=== PATIENT | female | born 1965 | race Caucasian/White ===

== ENCOUNTER → 2020-03-17 15:27 | Outpatient (CLI) | payer MEDICAID, SELFPAY ==
[2020-03-17 16:22] LABS: Basophils # 0.1 K/mm3 (0-0.2); Basophils % 0.4 % (0.1-2.0); Eosinophils % 0.4 % (0.1-12.0); Hematocrit 45.2 % (37.0-47.0); Hemoglobin 14.5 g/dL (12.2-16.2); Lymphocytes # 1.1 K/mm3 (0.7-4.5); Lymphocytes % 10.9 % (10-50); Mean Corpuscular Hemoglobin 29.2 pg (27.0-31.2); Mean Corpuscular Volume 91.5 fl (81-99); Mean Platelet Volume 8.3 fl (7.4-10.4); Monocytes # 0.3 K/mm3 (0.1-1.0); Neutrophils # 8.8 K/mm3 (1.8-7.8); Neutrophils % 85.2 % (37.0-80.0); Platelet Count 416 K/mm3 (142-424); Red Blood Count 4.95 M/mm3 (4.20-5.40); Red Cell Distribution Width 13.6 % (11.5-17.5); White Blood Count 10.3 K/mm3 (4.8-10.8)
[2020-03-17 16:28] LABS: MANUAL DIFFERENTIAL MANUAL DIFFERENTIAL (MANUAL DIFF)
[2020-03-17 16:32] LABS: Alanine Aminotransferase 42 U/L (12-78); Albumin Level 4.4 g/dl (3.5-5.0); Albumin/Globulin Ratio 1.4 (1.1-1.8); Alkaline Phosphatase 143 U/L (38-126); Anion Gap 12.7 mEq/L (5-15); Aspartate Amino Transferase 28 U/L (14-36); Bilirubin,Total 0.5 mg/dl (0.2-1.3); Blood Urea Nitrogen 26 mg/dl (7-17); Calcium 10.1 mg/dl (8.4-10.2); Carbon Dioxide 30 mmol/L (22.0-30.0); Chloride 100 mmol/L (98-107); Estimated Glomerular Filt Rate 58 ml/min (>60); GFR (African American) 70 ML/MIN (>60); Globulin 3.2 g/dL (1.3-3.2); Glucose 106 mg/dl (74-100); Potassium 4.7 mmoL/L (3.5-5.1); Sodium 138 mmol/L (136-145); Total Protein,Serum 7.6 g/dl (6.3-8.2)
[2020-03-17 17:30] LABS: Lymphocytes % 10 % (10-50); Monocytes % 4 % (2-9); Neutrophils % 86 % (42-76); Platelet Estimate Normal; RBC Morphology Normal; Total Cells Counted 100
== END ==
PROVIDERS: Visit Provider Family Medicine
DX: Z79.899 Other long term (current) drug therapy (principal); G43.909 Migraine, unspecified, not intractable, without status migrainosus; M32.9 Systemic lupus erythematosus, unspecified
CPT/HCPCS: 80053; 85007; 85025

== ENCOUNTER → 2021-07-27 08:18 | Outpatient (CLI) | payer MEDICAID, SELFPAY | PROVIDERS: Visit Provider Family Medicine | DX: R35.0 Frequency of micturition (principal) | CPT/HCPCS: 87086 ==

== ENCOUNTER → 2021-11-30 11:24 | Outpatient (CLI) | payer MEDICAID, SELFPAY ==
--- NOTE | 2021-11-30 11:31 | XR_ITS ---
FINAL REPORT CLINICAL HISTORY: erosive oa FINDINGS: RIGHT HIP Two views of the right hip with an AP pelvis demonstrate no acute fracture or dislocation. There are severe degenerative changes of the right hip. There are subchondral cysts in the superior femoral head. There is mild superolateral subluxation of the right femur. No soft tissue abnormality is seen. IMPRESSION: Severe degenerative changes of the right hip. Subchondral cysts in the superior femoral head. Reviewed, Interpreted and Dictated by Kyle Potts III, MD Transcribed by Lori Jennings Authenticated and [facility]
== END ==
PROVIDERS: PCP Family Medicine; Visit Provider Family Medicine
DX: M25.551 Pain in right hip (principal)
CPT/HCPCS: 73502

== ENCOUNTER → 2022-01-24 09:48 | Outpatient (CLI) | payer MEDICAID, SELFPAY | PROVIDERS: PCP Family Medicine; Visit Provider Orthopaedic Surgery | DX: Z01.812 Encounter for preprocedural laboratory examination (principal); Z20.822 Contact with and (suspected) exposure to COVID-19 | CPT/HCPCS: 36415; C9803; U0003; U0005 ==

== ENCOUNTER → 2023-01-16 12:00 | Outpatient (CLI) | payer OTHER, SELFPAY ==
[2023-01-16 18:21] LABS: Coronavirus 19, PCR Not Detected (NotDetected); Influenza A, PCR Not Detected (NotDetected); Influenza B, PCR Not Detected (NotDetected)
== END ==
PROVIDERS: PCP Nurse Practitioner; Visit Provider Nurse Practitioner
DX: J06.9 Acute upper respiratory infection, unspecified (principal)
CPT/HCPCS: 87636

== ENCOUNTER 2024-08-10 09:11 | Outpatient (CLI) | payer OTHER, SELFPAY ==
--- NOTE | 2024-08-10 10:00 | MM_ITS ---
PROCEDURE INFORMATION: Exam: Bilateral Screening 3D Mammography Exam date and time: 08/10/2024 9:41 AM Age: 59 years old Clinical indication: Screening. No family history of breast cancer. TECHNIQUE: Imaging protocol: Bilateral Screening tomosynthesis and 2D mammography including computer-aided detection (CAD) when performed. COMPARISON: DIG MAMMO BILAT SCREENING 11/06/2016 2:52 PM FINDINGS: MAMMOGRAPHY: Breast composition: There are scattered areas of fibroglandular density. Mass: None. Architectural distortion: None. Calcifications: No suspicious calcifications. Asymmetric density: No developing asymmetry. Skin thickening: None. Axillary adenopathy: None. IMPRESSION: No mammographic evidence of malignancy. Annual screening is recommended unless otherwise clinically indicated. ASSESSMENT: BI-RADS Category 1: Negative.
== END 2024-08-10 23:59 | disposition home or self-care (01) ==
LOC: RAD 09:11
PROVIDERS: PCP Family Medicine; Visit Provider Family Medicine
DX: Z12.31 Encounter for screening mammogram for malignant neoplasm of breast (principal)
CPT/HCPCS: 77063; 77067

== ENCOUNTER 2024-12-09 00:29 | Observation (INO) | payer OTHER, SELFPAY ==
[2024-12-09] VITALS (7 sets, daily range): BP systolic 108–140; BP diastolic 54–69; PULSE 60–82; RESP 13–16; TEMP 36.6–36.8; O2SAT 95–100; BMI 26.5; BMI 26.8
--- NOTE | 2024-12-09 00:31 | CT_ITS ---
PROCEDURE INFORMATION: Exam: CT Abdomen And Pelvis With Contrast Exam date and time: 12/09/2024 1:04 AM Age: 59 years old Clinical indication: Abdominal pain; Epigastric; Additional info: Epigastric pain TECHNIQUE: Imaging protocol: Computed tomography of the abdomen and pelvis with contrast. Total images: 300 Radiation optimization: All CT scans at this facility use at least one of these dose optimization techniques: automated exposure control; mA and/or kV adjustment per patient size (includes targeted exams where dose is matched to clinical indication); or iterative reconstruction. Contrast material: ISOVUE; Contrast volume: 75 ml; Contrast route: IV; COMPARISON: CR XR HIP RT 2-3V W/PELVIS 11/30/2021 11:34 AM FINDINGS: Lungs: Lung bases are clear. Heart: Trace pericardial fluid versus thickening. Normal heart size. Diaphragm: Moderate hiatal hernia. Liver: Normal. No mass. Gallbladder and biliary ducts: Distended gallbladder with mild wall thickening and subtle pericholecystic edema. Cholelithiasis. No biliary ductal dilatation. Pancreas: Normal. No ductal dilation. Spleen: Normal. No splenomegaly. Adrenal glands: Normal. No mass. Kidneys and ureters: No hydronephrosis, nephrolithiasis, or renal mass. No ureteral stones. Stomach and bowel: Unremarkable stomach and duodenum. No ileus or bowel obstruction. Unremarkable small bowel. Mild fluid distended terminal ileum. Moderate sigmoid diverticulosis without diverticulitis. Unremarkable rectum. Appendix: Nonvisualized appendix. No secondary signs for appendicitis. Intraperitoneal space: Unremarkable. No free air. No significant fluid collection. Vasculature: Nonaneurysmal abdominal aorta with mild scattered calcifications. Major abdominal vessels enhance appropriately. Lymph nodes: Unremarkable. No enlarged lymph nodes. Urinary bladder: Collapsed bladder. Reproductive: Physiologic uterus and ovaries. Tubal ligation clips. No adnexal mass. Bones/joints: right total hip arthroplasty. No acute osseous abnormality or concerning bone lesions. Soft tissues: tiny fat containing umbilical hernia. IMPRESSION: 1. Concerning findings for acute calculus cholecystitis. Recommend follow-up gallbladder ultrasound and/or hepatobiliary scintigraphy. 2. Moderate sigmoid diverticulosis without acute diverticulitis. 3. Moderate hiatal hernia.
--- NOTE | 2024-12-09 00:31 | ECG_ITS ---
APPROVED REPORT Exam: Resting ECG HR:72 bpm ECG Measurements Heart Rate 72 AXES NC 164 P 67 QRSd 66 QRS 76 QT 389 T 80 QTc 412 Conclusion SINUS RHYTHM SEPTAL MYOCARDIAL INFARCTION , PROBABLY OLD [40+ ms Q WAVE IN V1/V2] ABNORMAL ECG UNCONFIRMED REPORT Electronically signed by : PROSPER CARRINGTON, 12/10/2024 06:56:17
[2024-12-09 00:40] LABS: Hematocrit 38.7 % (37.0-47.0); Hemoglobin 12.9 g/dL (12.2-16.2); Immature Granulocytes % 0.2 %; Mean Corpuscular HGB Conc 33.3 g/dL (31.8-35.4); Mean Corpuscular Hemoglobin 27.8 pg (27.0-31.2); Mean Corpuscular Volume 83.4 fl (81-99); Nucleated Red Blood Cells % 0 %; Platelet Count 326 K/mm3 (142-424); Red Blood Count 4.64 M/mm3 (4.20-5.40); Red Cell Distribution Width-SD 43.3 fL; White Blood Count 8.6 K/mm3 (4.8-10.8)
[2024-12-09] MEDS: ACETAMINOPHEN 500MG TAB 1000 MG PO (00:40)
[2024-12-09] MEDS: KETOROLAC 30MG/ML VIAL 15 MG IV (00:40)
[2024-12-09] MEDS: MORPHINE 4MG/ML SYRINGE 4 MG IV (00:40)
[2024-12-09] MEDS: LACTATED RINGERS 1000ML 1,000 ML 999 ML IV (00:41)
[2024-12-09] MEDS: ONDANSETRON 4MG/2ML VIAL 4 MG IV (00:41)
[2024-12-09 00:51] LABS: Alanine Aminotransferase 16 U/L (12-78); Albumin Level 4.7 g/dl (3.5-5.0); Albumin/Globulin Ratio 1.3 (1.1-1.8); Alkaline Phosphatase 96 U/L (38-126); Anion Gap 19.1 mEq/L (5-15); Aspartate Amino Transferase 24 U/L (14-36); Bilirubin,Total 0.6 mg/dl (0.2-1.3); Blood Urea Nitrogen 25 mg/dl (7-17); Calcium 10.1 mg/dl (8.4-10.2); Carbon Dioxide 19 mmol/L (22.0-30.0); Chloride 102 mmol/L (98-107); Creatinine Clearance Estimated 49 mL/min (50-200); Creatinine,Serum 1.30 mg/dl (0.52-1.04); Estimated Glomerular Filt Rate 42 ml/min (>60); GFR (African American) 51 ML/MIN (>60); Globulin 3.7 g/dL (1.3-3.2); Glucose 103 mg/dl (74-100); Lipase 252 U/L (23-300); Magnesium 1.6 mg/dl (1.6-2.3); Potassium 3.1 mmoL/L (3.5-5.1); Sodium 137 mmol/L (136-145); Total Protein,Serum 8.4 g/dl (6.3-8.2)
--- NOTE | 2024-12-09 00:52 | ED_ITS ---
Discharge Plan Disposition Patient Disposition: Admitted Prescriptions Prescriptions: No Action omeprazole 20 mg capsule,delayed release(DR/EC) 20 mg PO BID Qty: 180 3RF albuterol sulfate 90 mcg/actuation HFA aerosol inhaler 2 puff inhalation Q4-6H PRN (Reason: shortness of breath or wheezing) Qty: 8.5 10RF sertraline [Zoloft] 100 mg tablet 100 mg PO DAILY Qty: 90 10RF Ubrelvy 100 mg tablet 100 mg PO ONCE Qty: 10 5RF Rx Instructions: one at onset of headache repeat in 6 hours as needed bupropion HCl [Wellbutrin SR] 150 mg tablet sustained-release 12 hr 150 mg PO DAILY Qty: 90 1RF lisinopril-hydrochlorothiazide 20-12.5 mg tablet See Rx Instructions .ROUTE .COMPLEX Qty: 90 1RF Dose Instruction: TAKE 1 TABLET BY MOUTH DAILY. Rx Instructions: TAKE 1 TABLET BY MOUTH DAILY. lorazepam 2 mg tablet 2 mg PO HS PRN (Reason: sleep) Qty: 30 5RF Wegovy 2.4 mg/0.75 mL pen injector 2.4 mg SQ WEEKLY Qty: 3 12RF pantoprazole [Protonix] 40 mg tablet,delayed release (DR/EC) 40 mg PO BID Qty: 180 3RF Clinical Impressions Clinical Impression: Acute calculous cholecystitis Instructions Patient Instructions: DI for Acute Abdominal Pain Print Language Print Language: Belgian Discharge ED Provider: Chuy Correa General Adult HPI General Chief complaint: Abdominal Pain Stated complaint: ABD PAIN Time Seen by Provider: 12/09/24 00:35 Mode of Arrival: Family Vehicle Source of Information: Patient Description of Symptoms (Recalled from ER Triage Doc. by RN): Abd pain Pt presnets to the ED with c/o epigastric pain accompanied by nausea and vomiting X 2 days. History of Present Illness HPI narrative: 59-year-old female with history of lupus, hypertension presents for epigastric abdominal pain for the last couple of days. She reports it is severe, radiating to the back, associated with nausea and vomiting. She reports she has been unable to keep anything significant down for the last couple of days. She denies any shortness of breath. When asked to localize her pain, she points to her epigastric region, though she describes it as chest pain. She denies any significant cardiac history. Still has her gallbladder. She reports that she was put on Wegovy. Related Data Previous Rx's ?Medication ?Instructions ?Recorded albuterol sulfate 90 mcg/actuation 2 puff inhalation Q 4-6H PRN 02/21/24 aerosol inhaler shortness of breath or wheez ing #8.5 grams sertraline 100 mg tablet (Zoloft) 100 mg PO DAILY #90 tabs 02/24/24 ubrogepant 100 mg tablet (Ubrelvy) 100 mg PO ONCE #10 tabs 07/14/24 bupropion HCl 150 mg tablet,12 hr 150 mg PO DAILY #90 ea 09/10/24 sustained-release (Wellbutrin SR) lisinopril 20 See Rx Instructions .Route 0 09/10/24 mg-hydrochlorothiazide 12.5 mg .COMPLEX #90 tabs tablet lorazepam 2 mg tablet 2 mg PO HS PRN sleep #30 tab s 10/21/24 omeprazole 20 mg capsule,delayed 20 mg PO BID #180 cap s 11/23/24 release Wegovy 2.4 mg/0.75 mL subcutaneous 2.4 mg (0.75 mL) SQ WEEKLY #3 mL 11/24/24 pen injector (semaglutide (weight loss)) pantoprazole 40 mg tablet,delayed 40 mg PO BID #180 ta bs 11/26/24 release (Protonix) Allergies Allergy/AdvReac Type Severity Reaction Status Date / Time codeine Allergy Severe Hives Verified 12/09/24 00:42 Penicillins Allergy Unknown Other Verified 12/09/24 00:42 [facility] Disclaimer: The information contained in this section may have been updated after the patient was seen, as this information can be updated by other users. Medical History Acute dysfunction of eustachian tube Hx of fracture of right hip Anemia Depression Hiatal hernia Anxiety Arthritis of right hip Hypertension Lupus Surgical History History of total left knee replacement Hx of carpal tunnel repair Hx of section Family History Other Heart attack Social History Smoking Status: Never smoker alcohol intake: never substance use type: denies use current occupational status: unemployed and disabled Travel in the last 8 weeks?: None housing: house Do you have any abdominal pain?: Yes Other Medical History Have you received the Pneumonia Vaccine: Yes ROS Obtained: Yes All systems reviewed & no additional complaints except as documented Physical Exam General General appearance: alert and in no apparent distress Head Head exam: atraumatic and normocephalic Eye Eye exam: Present normal appearance, PERRL and EOMI ENT ENT exam: Present normal oropharynx and normal external ear exam Neck Neck exam: Present normal inspection and full ROM Chest Chest inspection: Present normal inspection and symmetric chest wall rise; Absent tenderness Respiratory Respiratory exam: Present normal lung sounds bilaterally; Absent respiratory distress Cardiovascular Cardiovascular exam: Present regular rate and normal rhythm Abdominal Exam Abdominal exam: Present soft and tenderness (Epigastric, right upper quadrant); Absent distention or guarding Extremities Exam Extremities exam: Present normal inspection; Absent edema or joint swelling Back Exam Back exam: Present normal inspection; Absent tenderness Neurological Exam Neurological exam: Present alert and oriented X3; Absent motor sensory deficit Psychiatric Psychiatric exam: Present normal affect and normal mood Skin Skin exam: Present warm, dry and normal color Lymphatic Lymphatic Findings: no adenopathy Medical Decision Making Medical Records Medical records reviewed: Yes I reviewed the patient's medical records. Screening: Per USPSTF and CDC recommendations, given the prevalence of disease in our region, it is our hospital?s policy to screen for HIV and viral Hepatitis for all patients aged 18 and over and those with ongoing risk factors. Mario Inquiry Pt receiving controlled substance: No Mario was queried for this patient: No Vital Signs: 12/09/24 00:35 Pulse Rate [Left] 82 Respiratory Rate 14 Blood Pressure [Right Arm] 138/63 Blood Pressure Mean [Right Arm] 88 Blood Pressure Source [Right Arm] Automatic Cuff Blood Pressure Position [Right Arm] Sitting 02 Sat by Pulse Oximetry 98 Oxygen Delivery Method Room Air Lab Data Lab results reviewed: Yes I reviewed the patient's lab results. Lab Results 12/09/24 00:34: WBC 8.6, RBC 4.64, Hgb 12.9, Hct 38.7, MCV 83.4, MCH 27.8, MCHC 33.3, RDW 14.3, Plt Count 326, MPV 9.3, Neut % (Auto) 76.6, Lymph % (Auto) 15.0, Todd % (Auto) 7.5, Eos % (Auto) 0.5, Baso % (Auto) 0.2, Neut # (Auto) 6.6, Lymph # (Auto) 1.3, Todd # (Auto) 0.7, Eos # (Auto) 0.0, Baso # (Auto) 0.0, Sodium 137, Potassium 3.1 L, Chloride 102, Carbon Dioxide 19 L, Anion Gap 19.1 H, BUN 25 H, Creatinine 1.30 H, Estimated Creat Clear 49, Estimated GFR 42 L, Est GFR ( Amer) 51 L, Glucose 103 H, Calcium 10.1, Magnesium 1.6, Total Bilirubin 0.6, AST 24, ALT 16, Alkaline Phosphatase 96, Troponin I < 0.01, Total Protein 8.4 H, Albumin 4.7, Globulin 3.7 H, Albumin/Globulin Ratio 1.3, Lipase 252 12/09/24 00:34 12/09/24 00:34 Orders (Tests/Meds): ED MEDICATIONS Generic Name Dose Route Start Last Admin Trade Name Freq PRN Reason Stop Dose Admin Ceftriaxone Sodium 1 gm/ 50 mls @ 100 mls/hr 12/09/24 01:47 Sodium Chloride IV 12/09/24 02:16 ONCE ONE Metronidazole 500 mg in 100 mls @ 100 mls/hr 12/09/24 01:47 Flagyl 500mg/100ml Ivpb IV 12/09/24 02:46 ONCE ONE Sodium Chloride 1,000 mls @ 999 mls/hr 12/09/24 02:00 Sod Chlor 0.9% 1000ml Bag IV 12/09/24 03:00 .Q1H1M JONEL Sodium Chloride 10 ml 12/09/24 01:09 12/09/24 01:09 Sodium Chloride 0.9% 10ml Syr (Rad Only) IV 01/08/25 01:08 10 ml NEEDED PRN Administration Maintain IV Site Discontinued Medications Generic Name Dose Route Start Last Admin Trade Name Freq PRN Reason Stop Dose Admin Acetaminophen 1,000 mg 12/09/24 00:30 12/09/24 00:40 Acetaminophen 500mg Tab PO 12/09/24 00:31 1,000 mg ONCE ONE Administration Lactated Ringer's 1,000 mls @ 999 mls/hr 12/09/24 00:30 12/09/24 00:41 Lactated Ringer's 1000 Ml Bag IV 12/09/24 01:30 999 mls/hr .Q1H1M JONEL Administration Iopamidol 75 ml 12/09/24 01:09 12/09/24 01:09 Iopamidol-370 (76%);100ml Bottle IV 12/09/24 01:10 75 ml ONCE ONE Administration Ketorolac Tromethamine 15 mg 12/09/24 00:30 12/09/24 00:40 Ketorolac 30mg/Ml Vial IV 12/09/24 00:31 15 mg ONCE ONE Administration Morphine Sulfate 4 mg 12/09/24 00:30 12/09/24 00:40 Morphine 4mg/Ml Syringe IV 12/09/24 00:31 4 mg ONCE ONE Administration Ondansetron HCl 4 mg 12/09/24 00:30 12/09/24 00:41 Ondansetron 4mg/2ml Vial IV 12/09/24 00:31 4 mg ONCE ONE Administration Potassium Chloride 40 meq 12/09/24 01:01 12/09/24 01:09 Potassium Chloride 20meq Tab PO 12/09/24 01:02 40 meq ONCE ONE Administration ORDERS Category Date Time Status CT abdomen pelvis w con Stat Cat Scan 12/09/24 00:31 Completed POCUS Point of Care (ER Only) Stat Exams 12/09/24 01:09 Ordered CBC w/Auto Diff [Complete Blood Count Auto Diff] Stat Lab 12/09/24 00:34 Completed CMP [Comprehensive Metabolic Panel] Stat Lab 12/09/24 00:34 Completed HIV Combo Stat Lab 12/09/24 00:34 Received Hepatitis C Ab Qual. W/ RFX Stat Lab 12/09/24 00:34 Received Lipase Stat Lab 12/09/24 00:34 Completed Magnesium Stat Lab 12/09/24 00:34 Completed Troponin I Q3H Lab 12/09/24 00:34 Completed Troponin I Q3H Lab 12/09/24 03:45 Ordered Blood Culture Stat Micro 12/09/24 01:47 Ordered ECG Data Tracing #1: I reviewed this ECG and interpreted as documented below: ECG initial impression date: 12/09/24 ECG initial impression time: 00:32 ECG normal with no acute: arrhythmias, ischemia, conduction abnormalities, chamber hypertrophy Tissue Perfus/Sepsis Re-Eval Sepsis Re-Evaluation Performed: Yes Date Performed: 12/09/24 Time Performed: 01:52 HEART Score History (anamnesis): Slightly suspicious ECG: Normal Age: 45-65 years Risk factors: 1-2 risk factors Troponin: </= normal limit HEART Score: 2 Medical Decision Narrative: 59-year-old female with history of lupus, takes Wegovy, presents for 2 days of worsening epigastric abdominal pain associated with nausea and vomiting.. History was obtained via interactive discussion with patient, family, chart review. On arrival, patient is [afebrile, hemodynamically stable, satting appropriately, alert, oriented x4, GCS 15], moving all extremities spontaneously. Full physical exam performed and significant for moderate epigastric/right upper quadrant abdominal pain Differential includes but is not limited to pancreatitis, Cholecystitis, gastroenteritis, ACS. Patient was given morphine, Zofran, Tylenol, Toradol, fluid bolus for symptomatic management and correction of underlying abnormalities. Workup initiated including CBC CMP lipase CT abdomen pelvis with IV contrast. On re-evaluation, patient [remains afebrile, HD stable.] Laboratory workup independently interpreted by me and significant for lipase at upper limit of normal at 250, mildly elevated creatinine from baseline, mild hypokalemia repleted orally. Imaging independently interpreted by me and significant for CT scan does not show any evidence of pancreatic inflammation. Does show a hiatal hernia. Gallbladder is markedly distended on CT, will evaluate with ultrasound. See radiology read for full review of final results. Ibmjn-[id number] ultrasound shows significant gallbladder wall thickening, gallbladder distention and sludge. Given patient history, exam and workup, patient's presentation most likely represents acute cholecystitis. Patient was initiated on ceftriaxone and Flagyl for antibiotic coverage (penicillin allergy) interactive discussion was had with hospitalist on-call for admission for general surgery evaluation in the morning. Procedures Risk/Benefits of Procedure(s) Were Explained: Yes Critical Care Critical Care Time Critical Care Time: No
[2024-12-09] MEDS: POTASSIUM CHLORIDE 20MEQ TAB 40 MEQ PO (01:09)
[2024-12-09] MEDS: IOPAMIDOL-370 (76%);100ML BOTTLE 75 ML IV (01:09)
[2024-12-09] MEDS: SODIUM CHLORIDE 0.9% 10ML SYR (RAD ONLY) 10 ML IV (01:09)
[2024-12-09 01:24] LABS: Troponin I < 0.01 ng/ml (0.00-0.034)
--- OUTSIDE RECORDS SUMMARY | 2024-12-09 01:36 | XMS_ITS | Continuity of Care Document ---
Author Organization [facility] Address [address] [place] [address] Care Team Providers Care Licensed Clinical Social Worker Name Role Phone Buster Badillo MD Primary Care Provider [phone] Encounters Date Type Department Care Team Description 03/21/2022 3:20 PM EST - 03/21/2022 11:59 PM EST Hospital Encounter Medical Office Building Radiology [address] [place] [address] Hip pain, right Discharge Disposition: Home or Self Care 03/21/2022 Travel 03/21/2022 4:30 PM EST Office Visit Medical Office Building Surgery [facility] [address], [address] [place] [address] Quin Pino MD S/P total right hip arthroplasty (Primary Dx) 03/14/2022 Travel 02/13/2022 Travel 02/13/2022 4:30 PM EDT Office Visit Medical Office Building Surgery Spine & [facility] [address], [address] [place] [address] Quin Pino MD S/P total right hip arthroplasty (Primary Dx) 02/06/2022 Travel 01/26/2022 7:29 AM EDT - 01/27/2022 12:17 PM EDT Hospital Encounter [facility] Inpatient [address] [place] [id number] Quin Pino MD Primary osteoarthritis of one hip, right Discharge Disposition: Home or Self Care 01/26/2022 Travel 01/26/2022 10:32 AM EDT Anesthesia Event [facility] Operating Room [address] [place] [address] Yossi Gibbs MD Covington, Wade R, CRNA 01/26/2022 10:40 AM EDT - 01/26/2022 2:10 PM EDT Surgery [facility] Operating Room [address] [place] [address] Quin Pino MD ARTHROPLASTY, HIP, TOTAL [66775 (CPT )] 01/25/2022 Travel 01/19/2022 Travel 01/11/2022 Travel 01/11/2022 2:45 PM EDT Pre-Admission Testing [facility] Anesthesia [address] [place] [address] Hypertension, unspecified type (Primary Dx) 01/04/2022 Travel 12/27/2021 3:09 PM EDT - 12/27/2021 11:59 PM EDT Hospital Encounter Medical Office Building Radiology [address] [place] [address] Primary osteoarthritis of one hip, right; Hip pain, right Discharge Disposition: Home or Self Care 12/27/2021 Travel 12/27/2021 2:20 PM EDT Office Visit Medical Office Building Surgery Sp[facility] & [facility] [address], [address] [place] [address] Quin Pino MD Hip pain, right (Primary Dx); Primary osteoarthritis of one hip, right 12/22/2021 Travel Allergies Active Allergy Reactions Criticality Noted Date Comments Codeine Hives Medium 12/27/2021 Medications omeprazole (PriLOSEC) [address] capsule Take 40 mg by mouth 1 (one) time each day in the morning. Do not crush or chew. Active nortriptyline (Pamelor) 10 MG capsule Take 10 mg by mouth every night. Active hydroxychloroquine (Plaquenil) 200 MG tablet Take 200 mg by mouth 1 (one) time each day. Active lisinopril-hydroCH LOROthiazide 20-12.5 MG tablet Take 1 tablet by mouth 1 (one) time each day in the morning. Active tolterodine LA (Detrol LA) 4 MG 24 hr capsule Take 4 mg by mouth 1 (one) time each day. Do not crush, chew, or split. Active acetaminophen (Tylenol) 500 MG tablet Take 2 tablets (1,000 mg total) by mouth every 8 (eight) hours if needed for pain. 100 tablet 01/28/20 Active aspirin 81 MG chewable tablet Chew 1 tablet (81 mg total) 2 (two) times a day. 60 tablet 01/28/20 Active gabapentin (Neurontin) 100 MG capsule Take 1 capsule (100 mg total) by mouth 3 (three) times a day. 30 capsule 01/28/20 Active Additional Information Patient not taking.Reported on 02/13/2022 omeprazole (PriLOSEC) [address] capsule Take 1 capsule (20 mg total) by mouth 1 (one) time each day before breakfast. Do not crush or chew. 30 capsule 01/28/20 Active Additional Information Patient not taking.Reported on 02/13/2022 ondansetron ODT (Zofran-ODT) 4 MG disintegrating tablet Take 1 tablet (4 mg total) by mouth every 8 (eight) hours if needed for nausea or vomiting. 20 tablet 01/28/20 Active Additional Information Patient not taking.Reported on 02/13/2022 oxyCODONE (Roxicodone) 5 MG immediate release tablet Take 1 tablet (5 mg total) by mouth every 4 (four) hours if needed for severe pain. 30 tablet 01/28/20 Active Additional Information Patient not taking.Reported on 02/13/2022 traMADol (Ultram) 50 MG tablet Take 1 tablet (50 mg total) by mouth every 6 (six) hours if needed for moderate pain. 60 tablet 01/28/20 Active Additional Information Patient not taking.Reported on 02/13/2022 naproxen sodium (Aleve) 220 MG tablet Take 220 mg by mouth 2 (two) times a day with meals. Active Active Problems Problem Noted Date Diagnosed Date S/P total right hip arthroplasty 02/14/2022 Primary osteoarthritis of one hip, right 022 Overview (01/01/2022): Added automatically from request for surgery [id number] Social History Smoking Status as of 12/09/2024 Tobacco Use Types Packs/Day Years Used Date Smoking Tobacco: Never Assessed CAGE ASSESSMENT Answer Date Recorded Cage unable to access Not on file 01/26/2022 Cage max number of drinks Not on file 2021 Cage Beverages a week Not on file 01/26/2022 Have you ever felt you should CUT down on your d rinking? 0 01/26/2022 Have you been ANNOYED by people criticizing your drinking? 0 01/26/2022 Have you felt GUILTY about your drinking? 0 01/26/2022 Have you had a drink first t krystal in the morning (EYE-PRESS CLIPPER) to steady your nerves or to get rid of a hangover? 0 01/26/2022 CAGE Questionnaire Score 0 022 Sex and Gender Information Value Date Recorded Sex Assigned at Not on file Legal Sex Female 7:57 PM EDT Gender Identity Not on file Sexual Orientation Not on file Last Filed Vital Signs Vital Sign Reading Time Taken Comments Blood Pressure 111/72 03/21/2022 3:39 PM EST Pulse 92 03/21/2022 3:39 PM EST Temperature 37.1 C (98.8 F) 01/27/2022 7:09 AM EDT Respiratory Rate 16 01/26/2022 10:13 PM EDT Oxygen Saturation 98% 01/27/2022 7:09 AM EDT Inhaled Oxygen Concentration - - Weight 96.3 kg (212 lb 4.9 oz) 03/21/2022 3:39 P M EST Height 160 cm (5' 3 ) 03/21/2022 3:39 PM EST Body Mass Index 37.61 03/21/2022 3:39 PM EST Plan of Treatment Not on file Medical Devices Implanted Type Area Hide Measuring Machine Operator Device Identifier Shelf Expiration Date Model / Serial / Lot Chg Shell R3 3 Hole Acet 54mm - [id number] Implanted:Qty: 1 on 01/26/2022 by Quin Pino MD at [facility] Hip Right: Hip [employer]-[id number] 09/29/2031 [id number] / / [id number] Chg Screw Ref Spher Head 35mm - [id number] Implanted:Qty: 1 on 01/26/2022 by Quin Pino MD at [facility] Hip Right: Hip [employer]-[id number] 04/16/2031 [id number] / / [id number] Chg Screw Ref Spher Head 25mm - [id number] Implanted:Qty: 1 on 01/26/2022 by Quin Pino MD at [facility] Hip Right: Hip [employer]-[id number] 07/27/2031 [id number] / / [id number] Chg Screw Ref Spher Head 30mm - [id number] Implanted:Qty: 1 on 01/26/2022 by Quin Pino MD at [facility] Hip Right: Hip [employer]-[id number] 09/20/2031 [id number] / / [id number] Chg Liner R3 20 Deg Xlpe Acet - [id number] Implanted:Qty: 1 on 01/26/2022 by Quin Pino MD at [facility] Hip Right: Hip [employer]-[id number] 05/17/2031 [id number] / / [id number] Polarstem Cementless Tiha 2 - [id number] Implanted:Qty: 1 on 01/26/2022 by Quin Pino MD at [facility] Hip Right: Hip [employer]-[id number] 09/05/2027 [id number] / / [id number] Chg Head Oxinium Fem 03/28 36 - [id number] Implanted:Qty: 1 on 01/26/2022 by Quin Pino MD at [facility] Hip Right: Hip [employer]-[id number] 05/30/2031 [id number] / / [id number] Procedures Procedure Name Priority Date/Time Associated Diagnosis Comments XR PELVIS 1 OR 2 VIEWS Routine 03/21/2022 3:32 PM EST Hip pain, right BASIC METABOLIC PANEL, PLASMA Routine 01/27/2022 2:56 AM EDT CBC W/O DIFFERENTIAL Routine 01/27/2022 2:56 AM EDT XR HIP RIGHT 2 OR 3 VIEWS STAT 01/26/2022 2:00 PM EDT FL LESS THAN 1 HOUR (NON-REPORTABLE) Routine 01/26/2022 12:42 PM EDT SURGICAL PATHOLOGY EXAM Routine 01/26/2022 11:14 AM EDT Primary osteoarthritis of one hip, right PB ANESTHESIA PLACEHOLDER Routine 01/26/2022 10:43 AM EDT WV AN ELECTIVE ENDOTRACHEAL AIRWAY Routine 01/26/2022 10:43 AM EDT W[place] TOTAL HIP ARTHROPLASTY 01/26/2022 10:21 AM EDT Primary osteoarthritis of one hip, right Special Needs lateral, stuhlberg, jamil and nephew synergy, R3 Cup, prophylactic cables, c-arm CBC W/O DIFFERENTIAL Routine 01/11/2022 3:22 PM EDT Primary osteoarthritis of one hip, right BASIC METABOLIC PANEL, PLASMA Routine 01/11/2022 3:22 PM EDT Primary osteoarthritis of one hip, right ALBUMIN, PLASMA Routine 01/11/2022 3:22 PM EDT Primary osteoarthritis of one hip, right HEMOGLOBIN A1C Routine 01/11/2022 3:22 PM EDT Primary osteoarthritis of one hip, right NICOTINE AND COTININE METABOLITE, SERUM, QUANTITATIVE Routine 01/11/2022 3:22 PM EDT Primary osteoarthritis of one hip, right ECG ADULT Routine 01/11/2022 2:50 PM EDT Hypertension, unspecified type XR HIP RIGHT 1 VIEW Routine 12/27/2021 3:20 PM EDT Hip pain, right XR LUMBAR SPINE 2 OR 3 VIEWS Routine 12/27/2021 3:20 PM EDT Primary osteoarthritis of one hip, right XR HAND & WRIST HISTORICAL Routine 04/20/2020 1:55 PM EST XR ELBOW RIGHT 3+ VIEWS Routine 04/20/2020 1:55 PM EST XR ELBOW LEFT 3+ VIEWS Routine 04/20/2020 1:55 PM EST EXTRACTABLE NUCLEAR ANTIGEN ANTIBODIES (SSA 52, SSA 60, AND SSB) (SO) Routine 04/20/2020 1:28 PM EST JAMIL/MINE DEPUTY (THEODORE) ANTIBODY, IGG (SO) Routine 04/20/2020 1:28 PM EST DOUBLE-STRANDED DNA (DSDNA) ANTIBODY, IGG BY IFA (SO) Routine 04/20/2020 1:28 PM EST C4 COMPLEMENT Routine 04/20/2020 1:28 PM EST C3 COMPLEMENT Routine 04/20/2020 1:28 PM EST CBC W/O DIFFERENTIAL Routine 04/20/2020 1:28 PM EST SEDIMENTATION RATE, AUTOMATED Routine 04/20/2020 1:28 PM EST WBC DIFFERENTIAL Routine 04/20/2020 1:28 PM EST CYCLIC CITRUL PEPTIDE ANTIBODY IGG Routine 04/20/2020 1:28 PM EST URIC ACID, PLASMA Routine 04/20/2020 1:28 PM EST RHEUMATOID FACTOR, PLASMA Routine 04/20/2020 1:28 PM EST C-REACTIVE PROTEIN, PLASMA Routine 04/20/2020 1:28 PM EST COMPREHENSIVE METABOLIC PANEL, PLASMA Routine 04/20/2020 1:28 PM EST FORTINO SINGLE PATTERN (REFLEX ONLY) (SO) Routine 04/20/2020 1:28 PM EST ANTINUCLEAR ANTIBODY (FORTINO) WITH HEP-2 SUBSTRATE, IGG BY IFA (SO) Routine 04/20/2020 1:28 PM EST ACUTE HEPATITIS PANEL Routine 04/20/2020 1:28 PM EST URINALYSIS, MANUAL WITH SCOPE Routine 04/20/2020 1:13 PM EST URINALYSIS WITH REFLEX MICROSCOPIC Routine 04/20/2020 1:13 PM EST PROTEIN, URINE, RANDOM WITH CREATININE Routine 04/20/2020 1:13 PM EST CREATININE, RANDOM URINE Routine 04/20/2020 1:13 PM EST Results * XR Pelvis 1 or 2 Views (03/21/2022 3:32 PM EST) Anatomical Region Laterality Modality Body, Pelvis Digital Radiogra phy Impressions 03/21/2022 3:44 PM EST Status post total right hip arthroplasty with no hardware complication or malalignment identified of the prosthesis appear CRITICAL RESULT: No. COMMUNICATION: Per this written report. Dictated by Anahi Field MD on 03/21/2022 3:43 PM Signed by Anahi Field MD on 03/21/2022 3:44 PM Narrative 03/21/2022 3:44 PM EST Exam/Procedure: XR PELVIS 1 OR 2 VIEWS ordered by QUIN PINO [id number] CLINICAL INDICATION: Pelvic pain TECHNIQUE: Single view pelvis COMPARISON: None. FINDINGS: Patient status post total right hip arthroplasty. Improvement seen in the postsurgical changes seen within the soft tissues. There is no hardware complication or malalignment identified of the prosthesis. Procedure Note Anahi Field MD - 03/21/2022 Exam/Procedure: XR PELVIS 1 OR 2 VIEWS ordered by QUIN PINO [id number] CLINICAL INDICATION: Pelvic pain TECHNIQUE: Single view pelvis COMPARISON: None. FINDINGS: Patient status post total right hip arthroplasty. Improvement seen in thepostsurgical changes seen within the soft tissues. There is no hardwarecomplication or malalignment identified of the prosthesis. IMPRESSION: Status post total right hip arthroplasty with no hardware complication ormalalignment identified of the prosthesis appear CRITICAL RESULT: No. COMMUNICATION: Per this written report. Dictated by Anahi Field MD on 03/21/2022 3:43 PM Signed by Anahi Field MD on 03/21/2022 3:44 PM Quin Pino MD IMG XR PROCEDURES Final Result * (ABNORMAL) CBC (01/27/2022 2:56 AM EDT) Only the most recent of3 resultswithin the time period is included. WBC Count 10.86(H) 3.70 - 10.30 10*3/uL LAB HEMATOLOGY METHOD 01/27/2022 3:07 AM EDT [facility] RBC Count 3.15(L) 3.90 - 5.20 10*6/uL LAB HEMATOLOGY METHOD 01/27/2022 3:07 AM EDT [facility] HGB 8.9(L) 11.2 - 15.7 g/dL LAB HEMATOLOGY METHOD 01/27/2022 3:07 AM EDT [facility] HCT 26.7(L) 34.0 - 45.0 % LAB HEMATOLOGY METHOD 01/27/2022 3:07 AM EDT [facility] Platelet Count 291 155 - 369 10*3/uL LAB HEMATOLOGY METHOD 01/27/2022 3:07 AM EDT [facility] MCV 85 79 - 98 fL LAB HEMATOLOGY METHOD 01/27/2022 3:07 AM EDT [facility] MCH 28.3 26.0 - 32.0 pg LAB HEMATOLOGY METHOD 01/27/2022 3:07 AM EDT [facility] MCHC 33.3 30.7 - 35.5 g/dL LAB HEMATOLOGY METHOD 01/27/2022 3:07 AM EDT [facility] RDW 13.2 11.5 - 14.5 % LAB HEMATOLOGY METHOD 01/27/2022 3:07 AM EDT [facility] MPV 8.8 8.8 - 12.5 fL LAB HEMATOLOGY METHOD 01/27/2022 3:07 AM EDT [facility] nRBC 0.0 <=0.0 per 100 WBCs LAB HEMATOLOGY METHOD 01/27/2022 3:07 AM EDT [facility] Blood Venous blood specimen / Unknown Venipuncture / Unknown 01/27/2022 2:56 AM EDT 01/27/2022 3:04 AM EDT us Joleen Martinez [facility] BLOOD ORDERABLES Final Re sult [facility] [address] [place] [address] * (ABNORMAL) Basic metabolic panel (01/27/2022 2:56 AM EDT) Only the most recent of2 resultswithin the time period is included. [facility] Glucose, Plasma 115(H) 74 - 99 mg/dL 01/27/2022 3:57 AM EDT [facility] BUN, Plasma 26(H) 7 - 21 mg/dL 01/27/2022 3:57 AM EDT [facility] Creatinine, Plasma 1.07 0.60 - 1.10 mg/dL 01/27/2022 3:57 AM EDT [facility] BUN/Creatinine Ratio 24 01/27/2022 3:57 AM EDT [facility] Sodium, Plasma 130(L) 136 - 145 mmol/L 01/27/2022 3:57 AM EDT [facility] Potassium, Plasma 4.3 3.7 - 4.8 mmol/L 01/27/2022 3:57 AM EDT [facility] Comment:Reference range for Serum potassium is 0.2 to 0.5 mmol/L higher than Plasma range. Chloride, Plasma 100 97 - 107 mmol/L 01/27/2022 3:57 AM EDT [facility] CO2, Plasma 23 22 - 29 mmol/L 01/27/2022 3:57 AM EDT [facility] Anion Gap 7 6 - 16 mmol/L 01/27/2022 3:57 AM EDT [facility] Total Calcium, Plasma 8.7(L) 8.9 - 10.2 mg/dL 01/27/2022 3:57 AM EDT [facility] eGFRcr 60.7 mL/min/1.7 3m*2 01/27/2022 3:57 AM EDT [facility] Comment: Reported eGFRcr in mL/min/1.73m2 is based the CKD-EPI 2020 equation that does not use a race coefficient. Effective 7/27/22 our laboratory changed the eGFR calculation to the CKD-EPI 2020 equation from the previously reported eGFR, based on the MDRD equation. For comparisons between the two equations, please see laboratory website: [email or web address] Blood Venous blood specimen / Unknown Venipuncture / Unknown 01/27/2022 2:56 AM EDT 01/27/2022 3:03 AM EDT us Joleen Martinez [facility] BLOOD ORDERABLES Final Re sult [facility] [address] [place], [place] [id number] * XR Hip Right 2 or 3 Views (01/26/2022 2:00 PM EDT) Anatomical Region Laterality Modality Lower Extremities, Hip Right Digital R adiography Impressions 01/26/2022 2:27 PM EDT Postoperative changes as described above. No hardware complication. CRITICAL RESULT: No. COMMUNICATION: Per this written report. Dictated by Megan Jewell MD on 01/26/2022 2:25 PM Signed by Megan Jewell MD on 01/26/2022 2:27 PM Narrative 01/26/2022 2:27 PM EDT Exam/Procedure: XR HIP RIGHT 2 OR 3 VIEWS ordered by JOLEEN MARTINEZ, [id number] CLINICAL INDICATION: TOTAL RIGHT HIP REPLACEMENT TECHNIQUE: XR HIP RIGHT 2 OR 3 VIEWS COMPARISON: 12/27/2021 FINDINGS: Status post right total hip arthroplasty, in near anatomic alignment. No hardware complication. Expected postoperative soft tissue air and swelling. Skin carmen are noted. Procedure Note Megan Jewell MD - 01/26/2022 Exam/Procedure: XR HIP RIGHT 2 OR 3 VIEWS ordered by JOLEEN MARTINEZ,[id number] CLINICAL INDICATION: TOTAL RIGHT HIP REPLACEMENT TECHNIQUE: XR HIP RIGHT 2 OR 3 VIEWS COMPARISON: 12/27/2021 FINDINGS: Status post right total hip arthroplasty, in near anatomic alignment. Nohardware complication. Expected postoperative soft tissue air andswelling. Skin carmen are noted. IMPRESSION: Postoperative changes as described above. No hardware complication. CRITICAL RESULT: No. COMMUNICATION: Per this written report. Dictated by Megan Jewell MD on 01/26/2022 2:25 PM Signed by Megan Jewell MD on 01/26/2022 2:27 PM Joleen Martinez [facility] IMG XR PROCEDURES Final Resul t * FL Less than 1 Hour Intraoperative (01/26/2022 12:42 PM EDT) Narrative IMAGING - 01/26/2022 1:11 PM EDT Images were obtained for surgical purposes. See Quin Pino's surgical note in the patient's chart for the findings. Quin Pino MD IMG FLUOROSCOPY PROCEDURES Kenyetta l Result IMAGING * Surgical Pathology Exam (01/26/2022 11:14 AM EDT) Case Report Surgical Pathology Case: [id number] Authorizing Provider: Quin Pino MD Collected: 01/26/2022 1114 Ordering Location: [facility] Operating Room Received: 01/26/2022 1427 Pathologist: Georgina Perdomo MD Specimen: Hip, Right, right femoral head 01/26/2022 3:49 PM EDT [facility] Final Diagnosis RIGHT FEMORAL HEAD: GROSS DIAGNOSIS ONLY. 01/26/2022 3:49 PM EDT [facility] at 1549 EDT Clinical Information Primary osteoarthritis of one hip, right [M16.11] 01/26/2022 3:49 PM EDT [facility] Gross Description A. RIGHT FEMORAL HEAD The specimen is received fresh, placed in formalin, labeled right femoral head , and consists of a femoral head measuring 3.7 cm in diameter. The articular surface is roughened with areas of eburnation and osteophyte formation. There is no evidence of fracture. Gross photographs are taken. The specimen is submitted for gross diagnosis only. Mayela Augustine 01/26/2022 3:49 PM EDT [facility] Bone Right hip region structure / Unknown 01/26/2022 11:14 AM EDT 01/26/2022 2:27 PM EDT Comment:Pre-op diagnosis: Primary osteoarthritis of one hip, right [M16.11] us Quin Pino MD LAB PATHOLOGY ORDERABLES Final Result [facility] [address] [place] [address] * [place] AN ELECTIVE ENDOTRACHEAL AIRWAY, PB ANESTHESIA PLACEHOLDER (01/26/2022 10:43 AM EDT) Narrative Carlos Ryan CRNA - 01/26/2022 10:43 AM EDT Carlos Ryan CRNA 01/26/2022 11:01 AM Airway Date/Time: 01/26/2022 10:43 AM Urgency: elective Airway not difficult General Information and Staff Patient location during procedure: OR SURGICAL MANAGER: Carlos Ryan CRNA Performed: DIAZ Indications and Patient Condition Indications for airway management: anesthesia Spontaneous Ventilation: absent Preoxygenated: yes Patient position: sniffing Mask difficulty assessment: 1 - vent by mask Final Airway Details Final airway type: endotracheal airway Successful airway: ETT Cuffed: yes Successful intubation technique: direct laryngoscopy Endotracheal tube insertion site: oral Blade: Ziegler Blade size: #2 ETT size (mm): 7.5 Cormack-Lehane Classification: grade I - full view of glottis Placement verified by: chest auscultation and capnometry Cuff volume (mL): 8 Measured from: lips ETT to lips (cm): 20 Number of attempts at approach: 1 Yossi Gibbs MD ANESTHESIA ORDERABLES Fi nal Result * Nicotine Cotinine Metabolite (01/11/2022 3:22 PM EDT) Nicotine, S/P, Quant <5 ng/mL 01/17/2022 11:10 PM EDT [facility] ([facility]) Cotinine, S/P, Quant <5 ng/mL 01/17/2022 11:10 PM EDT [facility] ([facility]) Blood Venous blood specimen / Unknown Venipuncture / Unknown 01/11/2022 3:22 PM EDT 01/11/2022 3:23 PM EDT Narrative [facility] ([facility]) - 01/17/2022 11:10 PM EDT Consistent with abstinence from nicotine-containing products for at least 1 week. INTERPRETIVE INFORMATION: Nicotine and Metabolites, Serum or Plasma, Quantitative Methodology: Quantitative Liquid Chromatography-Tandem Mass Spectrometry Positive cutoff: 5 ng/mL For medical purposes only; not valid for forensic use. This test is designed to evaluate recent use of nicotine-containing products. Passive and active exposure cannot be discriminated definitively, although a cutoff of 10 ng/mL cotinine is frequently used for surgery qualification purposes. For smoking cessation programs or compliance testing, the absence of expected drug(s) and/or drug metabolite(s) may indicate non-compliance, inappropriate timing of specimen collection relative to drug administration, poor drug absorption, or limitations of testing. This test cannot distinguish between use of tobacco and purified nicotine products. The concentration value must be greater than or equal to the cutoff to be reported as positive. This test was developed and its performance characteristics determined by [employer] It has not been cleared or approved by the [place] Food and Drug Administration. This test was performed in a CLIA certified laboratory and is intended for clinical purposes. Performed By: [facility] [address] [place] [address] Supervisor Contingents: Glenn Mcgraw MD, PhD Quin Pino MD LAB BLOOD ORDERABLES Final Resu lt [facility] [address] [place] [id number] * Hemoglobin A1c (01/11/2022 3:22 PM EDT) Hemoglobin A1c 5.4 <5.7 % 01/11/2022 6:36 PM EDT [facility] Blood Venous blood specimen / Unknown Venipuncture / Unknown 01/11/2022 3:22 PM EDT 01/11/2022 3:23 PM EDT Narrative [facility] - 01/11/2022 6:36 PM EDT HA1C Interpretive Data: Diagnosis of Diabetes: Diabetic > or = 6.5% Pre-diabetic 5.7 to 6.4% Non-diabetic < or = 5.6% Glycemic Targets for Type I and Type II Diabetics: Non- Adults <7.0% Adults <6.0% Children and Adolescents <7.5% Source: [place]. Standards of medical care in diabetes,2017. Diabetes Care.2017:40 (suppl 1):S1-S135. HbA1c assay performed by an ion-exchange chromatography method that is certified traceable to the DCCT. Quin Pino MD LAB BLOOD ORDERABLES Final Resu lt Performing Organization Address [facility] de Phone Number [facility] [address] [place] [address] * Albumin, Plasma (01/11/2022 3:22 PM EDT) Albumin, Plasma 4.2 3.5 - 5.2 g/dL 01/11/2022 6:11 PM EDT [facility] Blood Venous blood specimen / Unknown Venipuncture / Unknown 01/11/2022 3:22 PM EDT 01/11/2022 3:23 PM EDT Quin Pino MD LAB BLOOD ORDERABLES Final Resu lt Performing Organization Address [facility] de Phone Number [facility] [address] [place] [address] * XR Hip Right 1 View (12/27/2021 3:20 PM EDT) Anatomical Region Laterality Modality Lower Extremities, Hip Right Digital R adiography Impressions 12/27/2021 3:57 PM EDT Lumbar spine: Degenerative changes of the lumbar spine, as described above. Mild grade 1 anterolisthesis of L4 on L5 and L3 on L4 and sitting relative to the standing images. 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 CRITICAL RESULT: No. COMMUNICATION: Per this written report. Dictated by Henry Mccrary MD on 12/27/2021 3:56 PM Signed by Henry Mccrary MD on 12/27/2021 3:57 PM Narrative 12/27/2021 3:57 PM EDT Exam/Procedure: XR LUMBAR SPINE 2 OR 3 VIEWS, XR HIP RIGHT 1 VIEW ordered by QUIN PINO, [id number] CLINICAL INDICATION: pre-op TECHNIQUE: XR LUMBAR SPINE 2 OR 3 VIEWS, XR HIP RIGHT 1 VIEW COMPARISON: None. FINDINGS: Lumbar spine: Presumed 5 lumbar type vertebral bodies. Vertebral body heights are maintained. Mild disc space narrowing and osteophyte formation at each level of the lumbar spine. There is mild grade 1 anterolisthesis of L4 on L5 and L3 on L4 on sitting relative to the standing images. Facet hypertrophy in the lumbar spine. Right hip: Presumed tubal ligation clips in the pelvis. Severe right and mild left femoral acetabular joint space narrowing with osteophyte formation. Femoral heads align with the acetabula. Procedure Note Henry Mccrary MD - 12/27/2021 Exam/Procedure: XR LUMBAR SPINE 2 OR 3 VIEWS, XR HIP RIGHT 1 VIEW orderedby QUIN PINO, [id number] CLINICAL INDICATION: pre-op TECHNIQUE: XR LUMBAR SPINE 2 OR 3 VIEWS, XR HIP RIGHT 1 VIEW COMPARISON: None. FINDINGS: Lumbar spine: Presumed 5 lumbar type vertebral bodies. Vertebral bodyheights are maintained. Mild disc space narrowing and osteophyte formationat each level of the lumbar spine. There is mild grade 1 anterolisthesisof L4 on L5 and L3 on L4 on sitting relative to the standing images. Facethypertrophy in the lumbar spine. Right hip: Presumed tubal ligation clips in the pelvis. Severe right andmild left femoral acetabular joint space narrowing with osteophyteformation. Femoral heads align with the acetabula. IMPRESSION: Lumbar spine: Degenerative changes of the lumbar spine, as describedabove. Mild grade 1 anterolisthesis of L4 on L5 and L3 on L4 and sittingrelative to the standing images. Right hip: Severe right and mild left femoral acetabular jointosteoarthrosis. CRITICAL RESULT: No. COMMUNICATION: Per this written report. Dictated by Henry Mccrary MD on 12/27/2021 3:56 PM Signed by Henry Mccrary MD on 12/27/2021 3:57 PM Quin Pino MD IMG XR PROCEDURES Final Result * Pre-Op: XR L-Spine (Lateral Standing / Lateral Sitting) (12/27/2021 3:20 PM EDT) Anatomical Region Laterality Modality Spine, L-spine Digital Radiogra phy Impressions 12/27/2021 3:57 PM EDT Lumbar spine: Degenerative changes of the lumbar spine, as described above. Mild grade 1 anterolisthesis of L4 on L5 and L3 on L4 and sitting relative to the standing images. 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 CRITICAL RESULT: No. COMMUNICATION: Per this written report. Dictated by Henry Mccrary MD on 12/27/2021 3:56 PM Signed by Henry Mccrary MD on 12/27/2021 3:57 PM Narrative 12/27/2021 3:57 PM EDT Exam/Procedure: XR LUMBAR SPINE 2 OR 3 VIEWS, XR HIP RIGHT 1 VIEW ordered by QUIN PINO, [id number] CLINICAL INDICATION: pre-op TECHNIQUE: XR LUMBAR SPINE 2 OR 3 VIEWS, XR HIP RIGHT 1 VIEW COMPARISON: None. FINDINGS: Lumbar spine: Presumed 5 lumbar type vertebral bodies. Vertebral body heights are maintained. Mild disc space narrowing and osteophyte formation at each level of the lumbar spine. There is mild grade 1 anterolisthesis of L4 on L5 and L3 on L4 on sitting relative to the standing images. Facet hypertrophy in the lumbar spine. Right hip: Presumed tubal ligation clips in the pelvis. Severe right and mild left femoral acetabular joint space narrowing with osteophyte formation. Femoral heads align with the acetabula. Procedure Note Henry Mccrary MD - 12/27/2021 Exam/Procedure: XR LUMBAR SPINE 2 OR 3 VIEWS, XR HIP RIGHT 1 VIEW orderedby QUIN PINO, [id number] CLINICAL INDICATION: pre-op TECHNIQUE: XR LUMBAR SPINE 2 OR 3 VIEWS, XR HIP RIGHT 1 VIEW COMPARISON: None. FINDINGS: Lumbar spine: Presumed 5 lumbar type vertebral bodies. Vertebral bodyheights are maintained. Mild disc space narrowing and osteophyte formationat each level of the lumbar spine. There is mild grade 1 anterolisthesisof L4 on L5 and L3 on L4 on sitting relative to the standing images. Facethypertrophy in the lumbar spine. Right hip: Presumed tubal ligation clips in the pelvis. Severe right andmild left femoral acetabular joint space narrowing with osteophyteformation. Femoral heads align with the acetabula. IMPRESSION: Lumbar spine: Degenerative changes of the lumbar spine, as describedabove. Mild grade 1 anterolisthesis of L4 on L5 and L3 on L4 and sittingrelative to the standing images. Right hip: Severe right and mild left femoral acetabular jointosteoarthrosis. CRITICAL RESULT: No. COMMUNICATION: Per this written report. Dictated by Henry Mccrary MD on 12/27/2021 3:56 PM Signed by Henry Mccrary MD on 12/27/2021 3:57 PM Quin Pino MD IMG XR PROCEDURES Final Result * XR HAND & WRIST HISTORICAL (04/20/2020 1:55 PM EST) Anatomical Region Laterality Modality Radiographic Miriam ging Narrative 04/20/2020 3:42 PM EST REQUESTING PHYSICIAN: SILVIA BONNER REASON FOR EXAMINATION/PROCEDURE: Pain in unspecified elbow EXAMINATION / PROCEDURE: ELBOW 3 OR MORE VIEWS RIGHT Apr 20 2020:55; ELBOW 3 OR MORE VIEWS LEFT Apr 20 2020:55; XR HAND & WRI ST PANEL BILATERAL Apr 20 2020 - :55; CLINICAL INDICATION: 54 years-old Female for Pain in unspecified elbow. Clinical concern for arthritis and/or sequela of lupus. TECHNIQUE: ELBOW 3 OR MORE VIEWS RIGHT, ELBOW 3 OR MORE VIEWS LEFT, XR HAND & WRIST PANEL BILATERAL COMPARISON: None. FINDINGS: Bilateral elbows: No acute fracture or malalignment seen. No erosive or degenerative change identified. No appreciable elbow joint effusion. No soft tissue abnormality seen. Bilateral hands: No acute fracture or malalignment seen. Diffuse IP joint narrowing, most notably at the bilateral thumb IP and index finger DIP joints where there are also small marginal osteophytes. 1 mm ossified body adjacent to the scapho -triquetral joint which may relate to remote trauma. Well marginated sclerotic density at the radial aspect of the left distal radius, most consistent with a bone island. No soft tissue abnormality seen. IMPRESSION: At the bilateral elbow s: No degenerative or inflammatory finding. At the bilateral hands: No inflammatory finding. Multifocal, symmetric appearing mild osteoarthrosis throughout the bilateral IP joints, most notably at the bilateral thumb IP and index finger DIP citlali nts. CRITICAL RESULT: No. COMMUNICATION: Per this written report. Verified by: MADISON DANIELLE M.D. on Apr 20 2020 3:41P Transcribed by: [facility] on Apr 20 2020 3:41P Dictated by: MADISON DANIELLE M.D. on Apr 20 2020 3:34P Procedure Note Madison Danielle MD - 08/09/2020 REQUESTING PHYSICIAN: SILVIA BONNER REASON FOR EXAMINATION/PROCEDURE: Pain in unspecified elbow EXAMINATION / PROCEDURE: ELBOW 3 OR MORE VIEWS RIGHT Apr 20 2020 - :55; ELBOW 3 OR MORE VIEWS LEFT Apr 20 2020:55; XR HAND & WRI ST PANEL BILATERAL Apr 20 2020:55; CLINICAL INDICATION: 54 years-old Female for Pain in unspecified elbow. Clinical concern for arthritis and/or sequela of lupus. TECHNIQUE: ELBOW 3 OR MORE VIEWS RIGHT, ELBOW 3 OR MORE VIEWS LEFT, XR HAND & WRIST PANEL BILATERAL COMPARISON: None. FINDINGS: Bilateral elbows: No acute fracture or malalignment seen. No erosive or degenerative change identified. No appreciable elbow joint effusion. No soft tissue abnormality seen. Bilateral hands: No acute fracture or malalignment seen. Diffuse IP joint narrowing, most notably at the bilateral thumb IP and index finger DIP joints where there are also small marginal osteophytes. 1 mm ossified body adjacent to the scapho -triquetral joint which may relate to remote trauma. Well marginated sclerotic density at the radial aspect of the left distal radius, most consistent with a bone island. No soft tissue abnormality seen. IMPRESSION: At the bilateral elbow s: No degenerative or inflammatory finding. At the bilateral hands: No inflammatory finding. Multifocal, symmetric appearing mild osteoarthrosis throughout the bilateral IP joints, most notably at the bilateral thumb IP and index finger DIP citlali nts. CRITICAL RESULT: No. COMMUNICATION: Per this written report. Verified by: MADISON DANIELLE M.D. on Apr 20 2020 3:41P Transcribed by: [facility] on Apr 20 2020 3:41P Dictated by: MADISON DANIELLE M.D. on Apr 20 2020 3:34P us Silvia Bonner [facility] IMG XR PROCEDURES Final Result * XR Elbow Right 3+ Views (04/20/2020 1:55 PM EST) Anatomical Region Laterality Modality Upper Extremities, Elbow Right Radiogr aphic Imaging Narrative 04/20/2020 3:42 PM EST REQUESTING PHYSICIAN: SILVIA BONNER REASON FOR EXAMINATION/PROCEDURE: Pain in unspecified elbow EXAMINATION / PROCEDURE: ELBOW 3 OR MORE VIEWS RIGHT Apr 20 2020:55; ELBOW 3 OR MORE VIEWS LEFT Apr 20 2020:55; XR HAND & WRI ST PANEL BILATERAL Apr 20 2020:55; CLINICAL INDICATION: 54 years-old Female for Pain in unspecified elbow. Clinical concern for arthritis and/or sequela of lupus. TECHNIQUE: ELBOW 3 OR MORE VIEWS RIGHT, ELBOW 3 OR MORE VIEWS LEFT, XR HAND & WRIST PANEL BILATERAL COMPARISON: None. FINDINGS: Bilateral elbows: No acute fracture or malalignment seen. No erosive or degenerative change identified. No appreciable elbow joint effusion. No soft tissue abnormality seen. Bilateral hands: No acute fracture or malalignment seen. Diffuse IP joint narrowing, most notably at the bilateral thumb IP and index finger DIP joints where there are also small marginal osteophytes. 1 mm ossified body adjacent to the scapho -triquetral joint which may relate to remote trauma. Well marginated sclerotic density at the radial aspect of the left distal radius, most consistent with a bone island. No soft tissue abnormality seen. IMPRESSION: At the bilateral elbow s: No degenerative or inflammatory finding. At the bilateral hands: No inflammatory finding. Multifocal, symmetric appearing mild osteoarthrosis throughout the bilateral IP joints, most notably at the bilateral thumb IP and index finger DIP citlali nts. CRITICAL RESULT: No. COMMUNICATION: Per this written report. Verified by: MADISON DANIELLE M.D. on Apr 20 2020 3:41P Transcribed by: [facility] on Apr 20 2020 3:41P Dictated by: MADISON DANIELLE M.D. on Apr 20 2020 3:34P Procedure Note Madison Danielle MD - 08/09/2020 REQUESTING PHYSICIAN: SILVIA BONNER REASON FOR EXAMINATION/PROCEDURE: Pain in unspecified elbow EXAMINATION / PROCEDURE: ELBOW 3 OR MORE VIEWS RIGHT Apr 20 2020:55; ELBOW 3 OR MORE VIEWS LEFT Apr 20 2020:55; XR HAND & WRI ST PANEL BILATERAL Apr 20 2020:55; CLINICAL INDICATION: 54 years-old Female for Pain in unspecified elbow. Clinical concern for arthritis and/or sequela of lupus. TECHNIQUE: ELBOW 3 OR MORE VIEWS RIGHT, ELBOW 3 OR MORE VIEWS LEFT, XR HAND & WRIST PANEL BILATERAL COMPARISON: None. FINDINGS: Bilateral elbows: No acute fracture or malalignment seen. No erosive or degenerative change identified. No appreciable elbow joint effusion. No soft tissue abnormality seen. Bilateral hands: No acute fracture or malalignment seen. Diffuse IP joint narrowing, most notably at the bilateral thumb IP and index finger DIP joints where there are also small marginal osteophytes. 1 mm ossified body adjacent to the scapho -triquetral joint which may relate to remote trauma. Well marginated sclerotic density at the radial aspect of the left distal radius, most consistent with a bone island. No soft tissue abnormality seen. IMPRESSION: At the bilateral elbow s: No degenerative or inflammatory finding. At the bilateral hands: No inflammatory finding. Multifocal, symmetric appearing mild osteoarthrosis throughout the bilateral IP joints, most notably at the bilateral thumb IP and index finger DIP citlali nts. CRITICAL RESULT: No. COMMUNICATION: Per this written report. Verified by: MADISON DANIELLE M.D. on Apr 20 2020 3:41P Transcribed by: [facility] on Apr 20 2020 3:41P Dictated by: MADISON DANIELLE M.D. on Apr 20 2020 3:34P Silvia Bonner [facility] IMG XR PROCEDURES Final Result * XR Elbow Left 3+ Views (04/20/2020 1:55 PM EST) Anatomical Region Laterality Modality Upper Extremities, Elbow Left Radiogr aphic Imaging Narrative 04/20/2020 3:42 PM EST REQUESTING PHYSICIAN: SILVIA BONNER REASON FOR EXAMINATION/PROCEDURE: Pain in unspecified elbow EXAMINATION / PROCEDURE: ELBOW 3 OR MORE VIEWS RIGHT Apr 20 2020 - 13:55; ELBOW 3 OR MORE VIEWS LEFT Apr 20 2020 - 13:55; XR HAND & WRI ST PANEL BILATERAL Apr 20 2020 - 13:55; CLINICAL INDICATION: 54 years-old Female for Pain in unspecified elbow. Clinical concern for arthritis and/or sequela of lupus. TECHNIQUE: ELBOW 3 OR MORE VIEWS RIGHT, ELBOW 3 OR MORE VIEWS LEFT, XR HAND & WRIST PANEL BILATERAL COMPARISON: None. FINDINGS: Bilateral elbows: No acute fracture or malalignment seen. No erosive or degenerative change identified. No appreciable elbow joint effusion. No soft tissue abnormality seen. Bilateral hands: No acute fracture or malalignment seen. Diffuse IP joint narrowing, most notably at the bilateral thumb IP and index finger DIP joints where there are also small marginal osteophytes. 1 mm ossified body adjacent to the scapho -triquetral joint which may relate to remote trauma. Well marginated sclerotic density at the radial aspect of the left distal radius, most consistent with a bone island. No soft tissue abnormality seen. IMPRESSION: At the bilateral elbow s: No degenerative or inflammatory finding. At the bilateral hands: No inflammatory finding. Multifocal, symmetric appearing mild osteoarthrosis throughout the bilateral IP joints, most notably at the bilateral thumb IP and index finger DIP citlali nts. CRITICAL RESULT: No. COMMUNICATION: Per this written report. Verified by: MADISON DANIELLE M.D. on Apr 20 2020 3:41P Transcribed by: [facility] on Apr 20 2020 3:41P Dictated by: MADISON DANIELLE M.D. on Apr 20 2020 3:34P Procedure Note Madison Danielle MD - 08/09/2020 REQUESTING PHYSICIAN: SILVIA BONNER REASON FOR EXAMINATION/PROCEDURE: Pain in unspecified elbow EXAMINATION / PROCEDURE: ELBOW 3 OR MORE VIEWS RIGHT Apr 20 2020 - 13:55; ELBOW 3 OR MORE VIEWS LEFT Apr 20 2020 - :55; XR HAND & WRI ST PANEL BILATERAL Apr 20 2020 - :55; CLINICAL INDICATION: 54 years-old Female for Pain in unspecified elbow. Clinical concern for arthritis and/or sequela of lupus. TECHNIQUE: ELBOW 3 OR MORE VIEWS RIGHT, ELBOW 3 OR MORE VIEWS LEFT, XR HAND & WRIST PANEL BILATERAL COMPARISON: None. FINDINGS: Bilateral elbows: No acute fracture or malalignment seen. No erosive or degenerative change identified. No appreciable elbow joint effusion. No soft tissue abnormality seen. Bilateral hands: No acute fracture or malalignment seen. Diffuse IP joint narrowing, most notably at the bilateral thumb IP and index finger DIP joints where there are also small marginal osteophytes. 1 mm ossified body adjacent to the scapho -triquetral joint which may relate to remote trauma. Well marginated sclerotic density at the radial aspect of the left distal radius, most consistent with a bone island. No soft tissue abnormality seen. IMPRESSION: At the bilateral elbow s: No degenerative or inflammatory finding. At the bilateral hands: No inflammatory finding. Multifocal, symmetric appearing mild osteoarthrosis throughout the bilateral IP joints, most notably at the bilateral thumb IP and index finger DIP citlali nts. CRITICAL RESULT: No. COMMUNICATION: Per this written report. Verified by: MADISON DANIELLE M.D. on Apr 20 2020 3:41P Transcribed by: [facility] on Apr 20 2020 3:41P Dictated by: MADISON DANIELLE M.D. on Apr 20 2020 3:34P Silvia Bonner APRN IMG XR PROCEDURES Final Result * FORTINO Single Pattern (04/20/2020 1:28 PM EST) FORTINO Pattern Homogeneous SUNQUEST FORTINO Titer Add 1:640 (NOTE) Performed By: [employer] [address] [place] [id number] Supervisor Contingents: Katarzyna Pereyra MD SUNQUEST 04/20/2020 1:28 PM EST 04/20/2020 2:05 PM EST Silvia Bonner APRN LAB BLOOD ORDERABLES Fi nal Result SUNQUEST * Antinuclear Antibody (04/20/2020 1:28 PM EST) Anti Nuc Ab Screen Detected Reference range: <1:80 SUNQUEST Comment: See Note (NOTE) Homogeneous Pattern Clinical associations: SLE, drug-induced SLE or BRANDYN. Main autoantibodies: Anti-dsDNA, anti-histones or anti-chromatin (anti-nucleosome) List of Abbreviations Antisynthetase syndrome (ARS), chronic active hepatitis (CAH), inflammatory myopathies (IM) [dermatomyositis (DM), polymyositis (PM), necrotizing autoimmune myopathy (NAM)], interstitial lung disease (ILD), juvenile idiopathic arthritis (BRANDYN), mixed connective tissue disease (MCTD), primary biliary cholangitis (PBC), rheumatoid arthritis (RA), systemic autoimmune rheumatic diseases (SARD), Sjogren syndrome (SjS), systemic lupus erythematosus (SLE), systemic sclerosis (SSc), undifferentiated connective tissue disease (UCTD). INTERPRETIVE INFORMATION: FORTINO Interpretive Comment Presence of antinuclear antibodies (FORTINO) is a hallmark feature of systemic autoimmune rheumatic diseases (SARD). However, FORTINO lacks diagnostic specificity and is associated with a variety of diseases (cancers, autoimmune, infectious, and inflammatory conditions) and may also occur in healthy individuals in varying prevalence. The lack of diagnostic specificity requires confirmation of positive FORTINO by more specific serologic tests. FORTINO (nuclear reactivity) positive patterns reported include centromere, homogeneous, nuclear dots, nucleolar, or speckled. FORTINO (cytoplasmic reactivity) positive patterns reported include reticular/AMA, discrete/GW body-like, polar/golgi-like, cytoplasmic speckled or rods and rings. All positive patterns are reported to endpoint titers (1:2560). Reported patterns may help guide differential diagnosis, although they may not be specific for individual antibodies or diseases. Mitotic staining patterns not reported. Negative results do not necessarily rule out SARD. Performed By: [facility] [address] [place] [id number] Supervisor Contingents: Katarzyna Pereyra MD 04/20/2020 1:28 PM EST 04/20/2020 2:05 PM EST Silvia Bonner [facility] LAB BLOOD ORDERABLES nal Result SUNQUEST * ENAII (04/20/2020 1:28 PM EST) THEODORE SSA (RO) Ab Test referred to outside laboratory. To see results in EPIC, go to Media tab for EU SUNQUEST Comment:Documents, Document Scanning. THEODORE SSB ([place]) Ab 1:1 EU SUNQUEST Comment: Reference range: 0 to 40 Unit: AU/mL (NOTE) INTERPRETIVE INFORMATION: SSB (La) (THEODORE) Ab, IgG 29 AU/mL or Less ............. Negative 30 - 40 AU/mL ................ Equivocal 41 AU/mL or Greater .......... Positive SSB (La) antibody is seen in 50-60% of Sjogren syndrome cases and is specific if it is the only THEODORE antibody present. 15-25% of patients with systemic lupus erythematosus (SLE) and 5-10% of patients with progressive systemic sclerosis (PSS) also have this antibody. Performed By: [employer] [address] [place] [address] Supervisor Contingents: Katarzyna Pereyra MD 04/20/2020 1:28 PM EST 04/20/2020 2:05 PM EST Silvia Magdaleno Bonner [facility] LAB BLOOD ORDERABLES Fi nal Result SUNQUEST * ENAI (04/20/2020 1:28 PM EST) [facility] MINE DEPUTY 5 EU SUNQUEST Comment: Reference range: 0 to 40 Unit: AU/mL (NOTE) INTERPRETIVE INFORMATION: Jamil/MINE DEPUTY (THEODORE) Antibody, IgG 29 AU/mL or Less ............. Negative 30 - 40 AU/mL ................ Equivocal 41 AU/mL or Greater .......... Positive Jamil/MINE DEPUTY antibodies are frequently seen in patients with mixed connective tissue disease (MCTD) and are also associated with other systemic autoimmune rheumatic diseases (SARDs) such as systemic lupus erythematosus (SLE), systemic sclerosis, and myositis. Antibodies targeting the Jamil/MINE DEPUTY antigenic complex also recognize Jamil antigens, therefore, the Jamil antibody response must be considered when interpreting these results. Performed By: [employer] [address] [place] [address] Supervisor Contingents: Katarzyna Pereyra MD Anti-Jamil 0 EU SUNQUEST Comment: Reference range: 0 to 40 Unit: AU/mL (NOTE) INTERPRETIVE INFORMATION: Jamil (THEODORE) Antibody, IgG 29 AU/mL or Less ............. Negative 30 - 40 AU/mL ................ Equivocal 41 AU/mL or Greater .......... Positive Jamil antibody is highly specific (greater than 90 percent) for systemic lupus erythematosus (SLE) but only occurs in 30-35 percent of SLE cases. The presence of antibodies to Jamil has variable associations with SLE clinical manifestations. 04/20/2020 1:28 PM EST 04/20/2020 2:05 PM EST [facility] Fi nal Result Performing Organization Address [facility] de Phone Number SUNQUEST * Cyclic Citrul Peptide Antibody IgG (04/20/2020 1:28 PM EST) Pathologist [facility] Cyclic Citrul Peptide Antibody IgG <5.0 <5.0 U/mL SUNQUEST 04/20/2020 1:28 PM EST 04/20/2020 2:09 PM EST [facility] Fi nal Result Performing Organization Address [facility] de Phone Number FAIRFIELDQUEST * Anti-DNA antibody, double-stranded (04/20/2020 1:28 PM EST) Pathologist [facility] ANTI DNA SCREEN <1:10 Reference range: <1:10 (NOTE) INTERPRETIVE INFORMATION: Double-Stranded DNA (dsDNA) Antibody, IgG by IFA (using Crithidia luciliae) Positivity for anti-double stranded DNA (anti-dsDNA) IgG antibody is a diagnostic criterion of systemic lupus erythematosus (SLE). The presence of the anti-dsDNA IgG antibody is identified by IFA titer (Crithidia luciliae indirect fluorescent test [FERMIN]). FERMIN is highly specific for SLE with a sensitivity of 50-60 percent. Some patients with early or inactive SLE may be positive for anti-dsDNA IgG by SKYLAR but negative by FERMIN. If the FERMIN result is negative but the patient has a positive SKYLAR and clinical suspicion remains, consider antinuclear antibody (FORTINO) testing by IFA. Additional information and recommendations for testing may be found at [email or web address]. Performed By: [employer] [address] [place] [id number] Supervisor Contingents: Katarzyna Pereyra MD SUNQUEST 04/20/2020 1:28 PM EST 04/20/2020 2:05 PM EST Silvia Dolan Bonner [facility] LAB BLOOD ORDERABLES Fi nal Result SUNQUEST * Acute Hepatitis Panel (04/20/2020 1:28 PM EST) Hepatitis B Surf Antigen NEGATIVE Reference Value: Negative SUNQUEST Hepatitis C Antibody NEGATIVE Reference Range: Negative SUNQUEST Hepatitis A Antibody IgM NEGATIVE Reference Value: Negative SUNQUEST External Hepatitis B Core IgM (HBCM) NEGATIVE Reference Value: Negative SUNQUEST 04/20/2020 1:28 PM EST 04/20/2020 2:09 PM EST Silvia Dolan Bonner [facility] LAB BLOOD ORDERABLES Fi nal Result Performing Organization Address [facility] de Phone Number SUNQUEST * WBC Differential (04/20/2020 1:28 PM EST) Differential Type AUTOMATED SUNQUEST Neutrophils % 67 % SUNQUEST Lymphocytes 25 % SUNQUEST Monocytes 6 % SUNQUEST Eosinophils 1 % SUNQUEST Basophils 1 % SUNQUEST Immature Granulocytes % 0 % SUNQUEST ABS Neutrophil 5.95 1.6 - 6.1 k/uL SUNQUEST ABS Lymphocyte 2.21 1.2 - 3.9 k/uL SUNQUEST ABS Monocyte 0.54 0.3 - 0.9 k/uL SUNQUEST ABS Eosinophil 0.11 0.0 - 0.5 k/uL SUNQUEST ABS Basophil 0.05 0.0 - 0.1 k/uL SUNQUEST Immature Granulocyte Absolute 0.03 0.0 - 0.06 k/uL SUNQUEST 04/20/2020 1:28 PM EST 04/20/2020 2:10 PM EST Narrative SUNQUEST - 04/20/2020 2:19 PM EST Therapeutic decision making should be based on absolute values, rather than percentages. Therapeutic decision making should be based on absolute values, rather than percentages. Therapeutic decision making should be based on absolute values, rather than percentages. Therapeutic decision making should be based on absolute values, rather than percentages. Silvia Bonner [facility] LAB BLOOD ORDERABLES Fi nal Result Performing Organization Address [facility] de Phone Number SUNQUEST * (ABNORMAL) Sedimentation Rate, Automated (04/20/2020 1:28 PM EST) Sedimentation Rate 41(H) <30 mm/hr SUNQUEST 04/20/2020 1:28 PM EST 04/20/2020 2:10 PM EST Silvia Bonner [facility] LAB BLOOD ORDERABLES Fi nal Result Performing Organization Address [facility] de Phone Number SUNQUEST * Rheumatoid Factor, Plasma (04/20/2020 1:28 PM EST) Rheumatoid Factor, Plasma <10 <14 IU/mL SUNQUEST 04/20/2020 1:28 PM EST 04/20/2020 2:11 PM EST Silvia Bonner [facility] LAB BLOOD ORDERABLES Fi nal Result Performing Organization Address [facility] [facility] de Phone Number SUNQUEST * (ABNORMAL) C3 Complement (04/20/2020 1:28 PM EST) C3 Complement 176(H) 84 - 166 mg/dL SUNQUEST 04/20/2020 1:28 PM EST 04/20/2020 2:10 PM EST Silvia Bonner [facility] BLOOD ORDERABLES Fi nal Result Performing Organization Address [facility] de Phone Number SUNQUEST * (ABNORMAL) C4 Complement (04/20/2020 1:28 PM EST) C4 Complement 49(H) 13 - 36 mg/dL SUNQUEST 04/20/2020 1:28 PM EST 04/20/2020 2:10 PM EST iSlvia Bonner [facility] BLOOD ORDERABLES Fi nal Result Performing Organization Address [facility] de Phone Number SUNQUEST * C-Reactive Protein, Plasma (04/20/2020 1:28 PM EST) CRP 6.8 <9 mg/L SUNQUEST Comment: Effective July 28, 2019, the unit of measure for CRP has changed from mg/dL to mg/L. The new reference range for CRP is < or = 8 mg/L. This CRP test is appropriate for assessment of infection, systemic inflammation and/or tissue injury. To assess cardiovascular disease risk order high sensitivity CRP (CRPH). 04/20/2020 1:28 PM EST 04/20/2020 2:11 PM EST Silvia Bonner [facility] BLOOD ORDERABLES Fi nal Result Performing Organization Address [facility] Phone Number SUNQUEST * Uric Acid, Plasma (04/20/2020 1:28 PM EST) Pathologist [facility] Uric Acid, Plasma 4.1 3.1 - 7.1 mg/dL SUNQUEST 04/20/2020 1:28 PM EST 04/20/2020 2:11 PM EST Silvia Bonner [facility] BLOOD ORDERABLES Fi nal Result Performing Organization Address [facility] de Phone Number SUNQUEST * (ABNORMAL) Comprehensive Metabolic Panel, Plasma (04/20/2020 1:28 PM EST) Glucose, Plasma 106(H) 74 - 99 mg/dL SUNQUEST BUN, Plasma 15 7 - 21 mg/dL SUNQUEST Creatinine, Plasma 1.01 0.60 - 1.10 mg/dL SUNQUEST BUN/Creatinine Ratio 15 8 - 20 SUNQUEST Sodium, Plasma 140 136 - 145 mmol/L SUNQUEST Potassium, Plasma 3.4(L) 3.7 - 4.8 mmol/L SUNQUEST Chloride, Plasma 103 97 - 107 mmol/L SUNQUEST CO2, Plasma 24 22 - 29 mmol/L SUNQUEST Anion Gap 13 6 - 16 mmol/L SUNQUEST Calcium, Plasma 9.2 8.9 - 10.2 mg/dL SUNQUEST AST, Plasma 16 11 - 32 U/L SUNQUEST ALT, Plasma 21 8 - 33 U/L SUNQUEST Alkaline Phosphatase, Plasma 129(H) 35 - 104 U/L SUNQUEST Total Bilirubin, Plasma 0.3 0.2 - 1.1 mg/dL SUNQUEST Total Protein 7.3 6.3 - 7.9 g/dL SUNQUEST Albumin, Plasma 4.2 3.5 - 5.2 g/dL SUNQUEST eGFR 57(L) >60 SEE NOTE SUNQUEST eGFR, if AFR/AM >60 >60 SEE NOTE SUNQUEST Comment: (NOTE) eGFR = estimated GFR; eGFR units = mL/min/1.73 sq meters Chronic Kidney Disease is considered if eGFR <60 mL/min/1.73 sq meters Kidney failure is considered if eGFR is <15 mL/min/1.73 sq meters. eGFR assumes steady state plasma creatinine concentration; not applicable if renal function is rapidly changing or patient is on dialysis. 04/20/2020 1:28 PM EST 04/20/2020 2:11 PM EST Silvia Bonner [facility] BLOOD ORDERABLES Fi nal Result Performing Organization Address [facility] de Phone Number SUNQUEST * Urinalysis, manual with scope (04/20/2020 1:13 PM EST) WBC, Urine 6-10 0 - 5 /HPF SUNQUEST RBC, Urine 1 0 - 3 /HPF SUNQUEST Squamous Epithelial 0-5 0 - 5 /HPF SUNQUEST Hyaline Casts 0-8 0 - 8 /LPF SUNQUEST Bacteria, Urine NEGATIVE /HPF SUNQUEST 04/20/2020 1:13 PM EST 04/20/2020 2:03 PM EST Silviashelia Bonner [facility] URINE ORDERABLES Fi nal Result Performing Organization Address [facility]/ZIP Co de Phone Number SUNQUEST * Protein, Random, Urine (04/20/2020 1:13 PM EST) Protein, Urine 8 mg/dL SUNQUEST Urine Protein Creatinine Ratio <0.1 <0.2 mg/mg creat. SUNQUEST Comment:CAUTION-A normal UPr /Cr does not rule out microalbuminuria. 04/20/2020 1:13 PM EST 04/20/2020 2:00 PM EST Silvia Bonner [facility] URINE ORDERABLES Fi nal Result Performing Organization Address [facility] de Phone Number SUNQUEST * Creatinine, Random, Urine (04/20/2020 1:13 PM EST) Creatinine, Random U 114 mg/dL SUNQUEST 04/20/2020 1:13 PM EST 04/20/2020 2:00 PM EST Silvia Bonner [facility] URINE ORDERABLES Fi nal Result Performing Organization Address [facility] Phone Number SUNQUEST * (ABNORMAL) Urinalysis with reflex microscopic (04/20/2020 1:13 PM EST) Color, Urine YELLOW SUNQUEST Clarity, Urine CLEAR SUNQUEST Spec [place], Urine 1.019 1.001 - 1.030 SUNQUEST pH, Urine 5.0 4.5 - 8.0 SUNQUEST Protein, Urine NEGATIVE NEG mg/dL SUNQUEST Glucose, Urine NEGATIVE NEG mg/dL SUNQUEST Ketones, Urine NEGATIVE NEG mg/dL SUNQUEST Blood, Urine Moderate(A) NEG SUNQUEST Bilirubin, Urine NEGATIVE NEG SUNQUEST Urobilinogen, Urine 0.2 0.2 - 1.0 EU/dL SUNQUEST Leukocytes, Urine Moderate(A) NEG SUNQUEST Nitrite, Urine NEGATIVE NEG SUNQUEST Microscopic Description MICROSCOPIC ANALYSIS INDICATED SUNQUEST 04/20/2020 1:13 PM EST 04/20/2020 2:03 PM EST Result [facility] Silvia Bonner [facility] URINE ORDERABLES Fi nal Result Performing Organization Address [facility] de Phone Number SUNQUEST Visit Diagnoses Diagnosis Start Date Primary osteoarthritis of one hip, right 12/27/2021 Hip pain, right Pain in joint, pelvic region and thigh 12/27/2021 Hip pain, right Pain in joint, pelvic region and thigh 12/27/2021 Primary osteoarthritis of one hip, right 12/27/2021 Hypertension, unspecified type 01/11/2022 Primary osteoarthritis of one hip, right 01/26/2022 Primary osteoarthritis of one hip, right 01/26/2022 S/P total right hip arthroplasty 02/13/2022 Hip pain, right Pain in joint, pelvic region and thigh 03/21/2022 S/P total right hip arthroplasty 03/21/2022 Care Teams Licensed Clinical Social Worker Relationship Specialty Start Date End Date Buster Badillo MD PCP - General 12/27/21
--- OUTSIDE RECORDS SUMMARY | 2024-12-09 01:36 | XMS_ITS | Clinical Summary ---
Author Organization [facility] Address [address] [place] [address] Phone Care Team Providers Care Hims Coder Name Role Phone Zuleyma Cook MD Primary Care Provider [phone] Social History Tobacco Use Types Packs/Day Years Used Date Smoking Tobacco: Never Assessed Comments Unknown Sex and Gender Information Value Date Recorded Sex Assigned at Not on file Legal Sex Female 1:28 AM EDT Gender Identity Not on file Sexual Orientation Not on file Plan of Treatment Health Maintenance Due Date Last Done Comments Annual Wellness Exam 1967 Hepatitis C Screening 1982 DTaP/TDaP/Td (1 - Tdap) 1983 Cervical Cancer Screening 1985 Pap Smear 1985 HPV/Pap Cotest 1994 Breast Cancer Screening 2004 Cologuard 2009 Colon Cancer Screening 2009 Colonoscopy 2009 FIT 2009 Sigmoidoscopy 2009 Virtual Colonography 2009 Pneumococcal Vaccine 50+ (1 of 1 - PCV) 2014 Zoster (1 of 2) 2014 COVID-19 Vaccine ( - 2023-2 5 season) 2023 Influenza Vaccine (#1) 2024 Hepatitis B Vaccine Aged Out No longe r eligible based on patient's age to complete this topic Meningococcal B Vaccine Aged Out No l onger eligible based on patient's age to complete this topic Insurance [facility] [id number] MDR Care Teams Hims Coder Relationship Specialty Start Date End Date Zuleyma Cook MD [address] [place] [address] PCP - General Family Medicine 06/15/14
[2024-12-09] MEDS: 0.9 % SODIUM CHLORIDE 1000ML 1,000 ML 999 ML IV (01:56)
[2024-12-09] MEDS: CEFTRIAXONE 1 GM 1 GM in 0.9 % SODIUM CHLORIDE 50 ML IV (01:56)
[2024-12-09] MEDS: METRONIDAZ/SOD CHL 500 MG/100 ML PIGGYBACK 100 MG IV ×2 (01:57→10:24)
--- NOTE | 2024-12-09 02:08 | P.HP_ITS ---
<Statement entered by Ricardo Acevedo MD - 12/09/24 15:44> Personally evaluated patient and agree with the plan of care as outlined by the TANK REFINISHER. History of Present Illness *Admission Date: 12/09/24 *Reason for visit:: Abdominal pain *History of present illness: This is a 59-year-old female who has a past medical history significant for anemia, depression, hiatal hernia, anxiety, hypertension, and lupus who presents with a chief complaint of epigastric abdominal pain, nausea, vomiting, and pain that radiates to the back. Due to the patient's symptoms, she presented to the emergency room for evaluation. CT scan of the abdomen pelvis revealed findings consistent with acute cholecystitis, moderate sigmoid diverticulosis without acute diverticulitis, and moderate hiatal hernia. As result of his findings, hospital medicine was contacted for further management. During my evaluation of patient, patient states she has had a 2-day history of epigastric abdominal pain that radiates to her back, inability to tolerate p.o., nonbilious brownish emesis, and nausea. Patient states that coughing makes her symptomology worse and they are worse nothing that relieves her symptoms. She has a known hiatal hernia and has had no complications. She is currently denying any chest pain, lightheadedness, dizziness, fever, chills, rigors, shortness of breath, dyspnea, or diarrhea. She reports her last bowel movement was 2 days ago. Additional pertinent labs obtained include a potassium of 3.1, carbon oxide of 19, BUN of 25, creatinine 1.30, GFR 42, blood glucose 103, and total protein 8.4. [facility] Disclaimer: The information contained in this section may have been updated after the patient was seen, as this information can be updated by other users. Medical History Acute dysfunction of eustachian tube Hx of fracture of right hip Anemia Depression Hiatal hernia Anxiety Arthritis of right hip Hypertension Lupus Surgical History History of total left knee replacement Hx of carpal tunnel repair Hx of section Family History Other Heart attack Social History (Updated 12/09/24 @ 02:58 by Nae Holder RN) Smoking Status: Never smoker alcohol intake: never substance use type: denies use current occupational status: unemployed and disabled Travel in the last 8 weeks?: None housing: house Do you have any abdominal pain?: Yes Other Medical History Have you received the Pneumonia Vaccine: Yes Review of Systems Review of Systems Review of systems:: pertinent systems reviewed and negative unless documented below Constitutional Constitutional: Reports poor appetite Eyes Eyes: Reports system reviewed and no additional complaints, except as documented ENT Ears, Nose, Mouth, and Throat: Reports system reviewed and no additional complaints, except as documented *Cardiovascular Cardiovascular: Reports system reviewed and no additional complaints, except as documented *Respiratory Respiratory: Reports system reviewed and no additional complaints, except as documented *Gastrointestinal Gastrointestinal: Reports abdominal pain, Reports nausea and Reports vomiting *Genitourinary Genitourinary: Reports system reviewed and no additional complaints, except as documented *Musculoskeletal Musculoskeletal: Reports system reviewed and no additional complaints, except as documented Integumentary/Breasts Skin/Breast: Reports system reviewed and no additional complaints, except as documented *Neurologic Neurologic: Reports system reviewed and no additional complaints, except as documented Psychiatric Psychiatric: Reports system reviewed and no additional complaints, except as documented Endocrine Endocrine: Reports system reviewed and no additional complaints, except as documented Hematologic/Lymphatic Hematologic/Lymphatic: Reports system reviewed and no additional complaints, except as documented Allergic/Immunologic Allergic/Immunologic: Reports system reviewed and no additional complaints, except as documented Meds Home Medications and Allergies Home Medications ?Medication ?Instructions ?Recorded ?Confirmed ?Type albuterol sulfate 90 mcg/actuation 2 puff inhalation Q 4-6H PRN 02/21/24 12/09/24 Rx aerosol inhaler shortness of breath or wheez ing #8.5 grams sertraline 100 mg tablet (Zoloft) 100 mg PO DAILY #90 tabs 02/24/24 12/09/24 Rx lisinopril 20 See Rx Instructions .Route 0 09/10/24 12/09/24 Rx mg-hydrochlorothiazide 12.5 mg .COMPLEX #90 tabs tablet lorazepam 2 mg tablet 2 mg PO HS PRN sleep #30 tab s 10/21/24 12/09/24 Rx pantoprazole 40 mg tablet,delayed 40 mg PO BID #180 ta bs 11/26/24 12/09/24 Rx release (Protonix) semaglutide (weight loss) 2.4 2.7 mg SQ WEEKLY 5 12/09/24 History mg/0.75 mL subcutaneous pen injector (Wegovy) New Prescriptions to Start Prescriptions: Allergies Allergy/AdvReac Type Severity Reaction Status Date / Time codeine Allergy Severe Hives Verified 12/09/24 00:42 Penicillins Allergy Unknown Other Verified 12/09/24 00:42 Exam Data for Last 24 hours Vital signs and Labs for Last 24 Hours: Pulse Resp BP Pulse Ox O2 Del Method 82 14 138/63 98 Room Air 12/09/24 00:35 12/09/24 00:35 12/09/24 00:35 12/09/24 00:35 12/09/24 00:35 Laboratory Results - last 24 hr 12/09/24 00:34: WBC 8.6, RBC 4.64, Hgb 12.9, Hct 38.7, MCV 83.4, MCH 27.8, MCHC 33.3, RDW 14.3, Plt Count 326, MPV 9.3, Neut % (Auto) 76.6, Lymph % (Auto) 15.0, [place] % (Auto) 7.5, Eos % (Auto) 0.5, Baso % (Auto) 0.2, Neut # (Auto) 6.6, Lymph # (Auto) 1.3, [place] # (Auto) 0.7, Eos # (Auto) 0.0, Baso # (Auto) 0.0, Sodium 137, Potassium 3.1 L, Chloride 102, Carbon Dioxide 19 L, Anion Gap 19.1 H, BUN 25 H, Creatinine 1.30 H, Estimated Creat Clear 49, Estimated GFR 42 L, Est GFR ( Amer) 51 L, Glucose 103 H, Calcium 10.1, Magnesium 1.6, Total Bilirubin 0.6, AST 24, ALT 16, Alkaline Phosphatase 96, Troponin I < 0.01, Total Protein 8.4 H, Albumin 4.7, Globulin 3.7 H, Albumin/Globulin Ratio 1.3, Lipase 252 I & O for Last 24 hours: Intake & Output 12/06/24 12/07/24 12/08/24 12/09/24 23:59 23:59 23:59 23:59 Weight 68.039 kg Constitutional Constitutional: no acute distress and cooperative *Routine HEENT Exam Head: Present normocephalic and atraumatic Eye: Present EOMI ENT: Present mucous membranes moist *Routine Neck Exam Neck: Present supple, full ROM and trachea midline *Routine Respiratory Exam Respiratory: Present CTA bilaterally, normal respiratory effort, able to speak in complete sentences and symmetric chest movement *Routine Cardiovascular Exam Cardiovascular: Present RRR, Normal S1 and Normal S2 *Routine Abdominal Exam Abdominal: Present soft and normoactive bowel sounds *Routine Rectal Exam Rectal:: deferred *Routine Genitalia Exam Genitalia:: deferred *Routine Extremities Exam Extremities: Present full ROM, pulses intact and normal capillary refill Routine Back/Spine/Pelvis Exam Back/Spine: Present full ROM *Routine Skin Exam Skin: Present intact, dry and warm *Routine Neurological Exam Neurological: Present alert, oriented X3, moving all extremities and normal speech Routine Psychiatric Exam Psychiatric: Present normal affect, normal thought process, cooperative, good insight and good judgment H&P: Result Impressions This is a 59-year-old female who has a past medical history of lupus who presents with 2-day history epigastric pain that radiates to the back. CT scan is consistent with acute cholecystitis. Assessment and Plan *Assessment and plan (1) Acute calculous cholecystitis: Status: Acute Category: Medical Code(s): K80.00 - Calculus of gallbladder with acute cholecystitis without obstruction (2) Hypokalemia: Status: Acute Category: Medical Code(s): E87.6 - Hypokalemia (3) Metabolic acidosis: Status: Acute Category: Medical Code(s): E87.20 - Acidosis, unspecified (4) Acute kidney injury superimposed on CKD: Status: Acute Category: Medical Code(s): N17.9 - Acute kidney failure, unspecified; N18.9 - Chronic kidney disease, unspecified Plan Assessment: Acute cholecystitis with cholelithiasis - 1 g Rocephin IV daily - 500 mg of metronidazole IV every 6 hours - Will keep patient n.p.o. - Consult general surgery - Right upper quadrant ultrasound - EKG for presurgical clearance Hypokalemia -Patient's potassium replaced in the emergency room Metabolic acidosis -Will monitor for now -If worsens or does not improve we will consider sodium bicarbonate supplementation Acute kidney injury on chronic renal impairment -Patient's baseline creatinine is normally within limits -Her GFR is normally 58-is 42 on presentation - Will give IV hydration - Will monitor creatinine daily - Consider ultrasound of kidney if no improvement Plan: Admit patient to the MedSur unit Activity as tolerated N.p.o. CBC/BMP daily Normal saline at 100 mL an hour 40 mg Lovenox subcu daily for DVT prophylaxis 2 mg morphine IV push every 4 hours Chemo rib pain 4 mg Zofran IV push. Hours. Nausea vomit Blood cultures x 2 Full code I will discussed this case with attending physician Dr. Acevedo and a look forward to more input
--- NOTE | 2024-12-09 02:08 | US_ITS ---
FINAL REPORT TECHNIQUE: Sonographic images of the right upper quadrant were obtained. CLINICAL HISTORY: Acute cholecystitis COMPARISON: CT 12/09/2024 FINDINGS: PANCREAS: Unremarkable. LIVER: Homogeneous. No focal hepatic lesion. No intrahepatic biliary ductal dilatation. GALLBLADDER: Gallbladder mildly distended with gallstones and thickened gallbladder wall. Small amount of pericholecystic fluid. COMMON DUCT: 4 mm. Normal for age. RIGHT KIDNEY: The right kidney measures 9.5 cm. There is no hydronephrosis, mass, or stone. FREE FLUID: None. IMPRESSION: Distended gallbladder with gallstones, gallbladder wall thickening, and a small amount of pericholecystic fluid. Findings could represent acute cholecystitis. Reviewed, Interpreted and Dictated by Suzette Corley MD Transcribed by Siobhan Morrell Authenticated and [facility]
[2024-12-09] MEDS: 0.9 % SODIUM CHLORIDE 1000ML 1,000 ML 100 ML IV (02:43)
[2024-12-09 03:02] LABS: Hepatitis C Ab Qual. W/ RFX NEGATIVE (Negative)
[2024-12-09 04:30] LABS: Troponin I < 0.01 ng/ml (0.00-0.034)
[2024-12-09 06:49] LABS: Hematocrit 33.1 % (37.0-47.0); Immature Granulocytes % 0.1 %; Mean Corpuscular HGB Conc 32.3 g/dL (31.8-35.4); Mean Corpuscular Hemoglobin 27.6 pg (27.0-31.2); Mean Corpuscular Volume 85.3 fl (81-99); Nucleated Red Blood Cells % 0 %; Platelet Count 226 K/mm3 (142-424); Red Blood Count 3.88 M/mm3 (4.20-5.40); Red Cell Distribution Width-SD 45.2 fL; White Blood Count 6.8 K/mm3 (4.8-10.8)
[2024-12-09 06:52] LABS: Chloride 108 mmol/L (98-107); Sodium 138 mmol/L (136-145)
[2024-12-09 06:53] LABS: Potassium 3.7 mmoL/L (3.5-5.1)
[2024-12-09 06:56] LABS: Anion Gap 11.7 mEq/L (5-15); Blood Urea Nitrogen 25 mg/dl (7-17); Calcium 8.9 mg/dl (8.4-10.2); Carbon Dioxide 22 mmol/L (22.0-30.0); Creatinine Clearance Estimated 54 mL/min (50-200); Creatinine,Serum 1.20 mg/dl (0.52-1.04); Estimated Glomerular Filt Rate 46 ml/min (>60); GFR (African American) 55 ML/MIN (>60); Glucose 92 mg/dl (74-100)
[2024-12-09 07:01] LABS: Hemoglobin 10.6 g/dL (12.2-16.2)
--- NOTE | 2024-12-09 08:20 | HMH.PHAINT1 ---
Pharmacy Intervention Comments: MEDICATION RECONCILIATION COMPLETED ON PATIENT USING EXTERNAL FILL HISTORY FROM PHARMACY AND LIST FROM PCP. -MEHUL CURTIS, IVONED
--- NOTE | 2024-12-09 08:42 | EXP.SURG.CON ---
History of Present Illness *Admission Date: 12/09/24 *Reason for visit:: Abdominal pain *History of present illness: This is a 59-year-old female seen in consultation from the primary service for evaluation regarding cholecystitis. She presents emergency department with increasing upper abdominal pain. No fevers. No jaundice. A CT scan revealed changes consistent with likely acute calculous cholecystitis. Forwarded from admission H&P: This is a 59-year-old female who has a past medical history significant for anemia, depression, hiatal hernia, anxiety, hypertension, and lupus who presents with a chief complaint of epigastric abdominal pain, nausea, vomiting, and pain that radiates to the back. Due to the patient's symptoms, she presented to the emergency room for evaluation. CT scan of the abdomen pelvis revealed findings consistent with acute cholecystitis, moderate sigmoid diverticulosis without acute diverticulitis, and moderate hiatal hernia. As result of his findings, hospital medicine was contacted for further management. During my evaluation of patient, patient states she has had a 2-day history of epigastric abdominal pain that radiates to her back, inability to tolerate p.o., nonbilious brownish emesis, and nausea. Patient states that coughing makes her symptomology worse and they are worse nothing that relieves her symptoms. She has a known hiatal hernia and has had no complications. She is currently denying any chest pain, lightheadedness, dizziness, fever, chills, rigors, shortness of breath, dyspnea, or diarrhea. She reports her last bowel movement was 2 days ago. Additional pertinent labs obtained include a potassium of 3.1, carbon oxide of 19, BUN of 25, creatinine 1.30, GFR 42, blood glucose 103, and total protein 8.4. [facility] Disclaimer: The information contained in this section may have been updated after the patient was seen, as this information can be updated by other users. Medical History Acute dysfunction of eustachian tube Hx of fracture of right hip Anemia Depression Hiatal hernia Anxiety Arthritis of right hip Hypertension Lupus Surgical History History of total left knee replacement Hx of carpal tunnel repair Hx of section Family History Other Heart attack Social History (Updated 12/09/24 @ 02:58 by Nae Holder RN) Smoking Status: Never smoker alcohol intake: never substance use type: denies use current occupational status: unemployed and disabled Travel in the last 8 weeks?: None housing: house Do you have any abdominal pain?: Yes Review of Systems Review of Systems Review of systems:: pertinent systems reviewed and negative unless documented below *Gastrointestinal Gastrointestinal: Reports as per HPI *Neurologic Neurologic: Reports system reviewed and no additional complaints, except as documented Meds Home Medications and Allergies Home Medications ?Medication ?Instructions ?Recorded ?Confirmed ?Type sertraline 100 mg tablet (Zoloft) 100 mg PO DAILY #90 tabs 02/24/24 12/09/24 Rx pantoprazole 40 mg tablet,delayed 40 mg PO BID #180 tabs 11/26/24 12/09/24 Rx release (Protonix) albuterol sulfate 90 mcg/actuation 2 puff inhalation Q4HP PRN 12/09/24 12/09/24 History aerosol inhaler shortness of breath or wheezing bupropion HCl 150 mg tablet,12 hr 150 mg PO DAILY 12/09/24 12/09/24 History sustained-release lisinopril 20 1 tab PO DAILY 12/09/24 12/09/24 History mg-hydrochlorothiazide 12.5 mg tablet lorazepam 2 mg tablet 2 mg PO HSP PRN sleep 12/09/24 12/09/24 History semaglutide (weight loss) 2.4 2.4 mg SQ WEEKLY 12/09/24 12/09/24 History mg/0.75 mL subcutaneous pen injector (Wegovy) New Prescriptions to Start Prescriptions: Allergies Allergy/AdvReac Type Severity Reaction Status Date / Time codeine Allergy Severe Hives Verified 12/09/24 00:42 Penicillins Allergy Unknown Other Verified 12/09/24 00:42 Exam (Inpt) Vital signs and Labs for Last 24 Hours: Temp Pulse Resp BP Pulse Ox O2 Del Method 97.8 F 70 16 108/60 L 95 Room Air 12/09/24 07:53 12/09/24 07:53 12/09/24 07:53 12/09/24 07:53 12/09/24 07:53 12/09/24 07:53 Laboratory Results - last 24 hr 12/09/24 00:34: WBC 8.6, RBC 4.64, Hgb 12.9, Hct 38.7, MCV 83.4, MCH 27.8, MCHC 33.3, RDW 14.3, Plt Count 326, MPV 9.3, Neut % (Auto) 76.6, Lymph % (Auto) 15.0, Wheeler % (Auto) 7.5, Eos % (Auto) 0.5, Baso % (Auto) 0.2, Neut # (Auto) 6.6, Lymph # (Auto) 1.3, Wheeler # (Auto) 0.7, Eos # (Auto) 0.0, Baso # (Auto) 0.0, Sodium 137, Potassium 3.1 L, Chloride 102, Carbon Dioxide 19 L, Anion Gap 19.1 H, BUN 25 H, Creatinine 1.30 H, Estimated Creat Clear 49, Estimated GFR 42 L, Est GFR ( Amer) 51 L, Glucose 103 H, Calcium 10.1, Magnesium 1.6, Total Bilirubin 0.6, AST 24, ALT 16, Alkaline Phosphatase 96, Troponin I < 0.01, Total Protein 8.4 H, Albumin 4.7, Globulin 3.7 H, Albumin/Globulin Ratio 1.3, Lipase 252, HCV Ab NEO w/Rflx PCR Qn Negative, HIV Ag/Ab Combo Qual Negative 12/09/24 03:57: Troponin I < 0.01 12/09/24 06:21: WBC 6.8, RBC 3.88 L, Hgb 10.6 L D, Hct 33.1 L, MCV 85.3, MCH 27.6, MCHC 32.3, RDW 14.4, Plt Count 226 D, MPV 9.5, Neut % (Auto) 70.0, Lymph % (Auto) 20.0, Wheeler % (Auto) 9.2, Eos % (Auto) 0.4, Baso % (Auto) 0.3, Neut # (Auto) 4.7, Lymph # (Auto) 1.4, Wheeler # (Auto) 0.6, Eos # (Auto) 0.0, Baso # (Auto) 0.0, Sodium 138, Potassium 3.7, Chloride 108 H, Carbon Dioxide 22, Anion Gap 11.7, BUN 25 H, Creatinine 1.20 H, Estimated Creat Clear 54, Estimated GFR 46 L, Est GFR ( Amer) 55 L, Glucose 92, Calcium 8.9 I & O for Labs for Last 24 Hours: Intake & Output 12/06/24 12/07/24 12/08/24 12/09/24 11:59 11:59 11:59 11:59 Intake Total 2149 Balance 2149 Weight 151 lb 3.2 oz Results Labs 12/09/24 06:21 12/09/24 06:21 Labs: Laboratory Results - last 24 hr 12/09/24 00:34: WBC 8.6, RBC 4.64, Hgb 12.9, Hct 38.7, MCV 83.4, MCH 27.8, MCHC 33.3, RDW 14.3, Plt Count 326, MPV 9.3, Neut % (Auto) 76.6, Lymph % (Auto) 15.0, Wheeler % (Auto) 7.5, Eos % (Auto) 0.5, Baso % (Auto) 0.2, Neut # (Auto) 6.6, Lymph # (Auto) 1.3, Wheeler # (Auto) 0.7, Eos # (Auto) 0.0, Baso # (Auto) 0.0, Sodium 137, Potassium 3.1 L, Chloride 102, Carbon Dioxide 19 L, Anion Gap 19.1 H, BUN 25 H, Creatinine 1.30 H, Estimated Creat Clear 49, Estimated GFR 42 L, Est GFR ( Amer) 51 L, Glucose 103 H, Calcium 10.1, Magnesium 1.6, Total Bilirubin 0.6, AST 24, ALT 16, Alkaline Phosphatase 96, Troponin I < 0.01, Total Protein 8.4 H, Albumin 4.7, Globulin 3.7 H, Albumin/Globulin Ratio 1.3, Lipase 252, HCV Ab NEO w/Rflx PCR Qn Negative, HIV Ag/Ab Combo Qual Negative 12/09/24 03:57: Troponin I < 0.01 12/09/24 06:21: WBC 6.8, RBC 3.88 L, Hgb 10.6 L D, Hct 33.1 L, MCV 85.3, MCH 27.6, MCHC 32.3, RDW 14.4, Plt Count 226 D, MPV 9.5, Neut % (Auto) 70.0, Lymph % (Auto) 20.0, Wheeler % (Auto) 9.2, Eos % (Auto) 0.4, Baso % (Auto) 0.3, Neut # (Auto) 4.7, Lymph # (Auto) 1.4, Wheeler # (Auto) 0.6, Eos # (Auto) 0.0, Baso # (Auto) 0.0, Sodium 138, Potassium 3.7, Chloride 108 H, Carbon Dioxide 22, Anion Gap 11.7, BUN 25 H, Creatinine 1.20 H, Estimated Creat Clear 54, Estimated GFR 46 L, Est GFR ( Amer) 55 L, Glucose 92, Calcium 8.[address] scan - abdomen: report reviewed and image reviewed CT scan - pelvis: report reviewed and image reviewed Assessment and Plan *Assessment and plan (1) Acute calculous cholecystitis: Status: Acute Category: Medical Code(s): K80.00 - Calculus of gallbladder with acute cholecystitis without obstruction Plan: Overall management (antibiotic coverage, etc.) as per primary service Tentatively scheduled for laparoscopic cholecystectomy tomorrow morning I have discussed the risks and benefits including, but not limited to: Bleeding Infection Damage to surrounding tissue Inherent risks of sedation The patient agrees to proceed.
--- NOTE | 2024-12-09 12:01 | EXP.DC.SUM ---
General Admission date:: 12/09/24 HPI HPI HPI: This is a 59-year-old female seen in consultation from the primary service for evaluation regarding cholecystitis. She presents emergency department with increasing upper abdominal pain. No fevers. No jaundice. A CT scan revealed changes consistent with likely acute calculous cholecystitis. Forwarded from admission H&P: This is a 59-year-old female who has a past medical history significant for anemia, depression, hiatal hernia, anxiety, hypertension, and lupus who presents with a chief complaint of epigastric abdominal pain, nausea, vomiting, and pain that radiates to the back. Due to the patient's symptoms, she presented to the emergency room for evaluation. CT scan of the abdomen pelvis revealed findings consistent with acute cholecystitis, moderate sigmoid diverticulosis without acute diverticulitis, and moderate hiatal hernia. As result of his findings, hospital medicine was contacted for further management. During my evaluation of patient, patient states she has had a 2-day history of epigastric abdominal pain that radiates to her back, inability to tolerate p.o., nonbilious brownish emesis, and nausea. Patient states that coughing makes her symptomology worse and they are worse nothing that relieves her symptoms. She has a known hiatal hernia and has had no complications. She is currently denying any chest pain, lightheadedness, dizziness, fever, chills, rigors, shortness of breath, dyspnea, or diarrhea. She reports her last bowel movement was 2 days ago. Additional pertinent labs obtained include a potassium of 3.1, carbon oxide of 19, BUN of 25, creatinine 1.30, GFR 42, blood glucose 103, and total protein 8.4. Hospital Course Hospital Course Hospital Course: Marian Lutz is a 59-year-old female is a 67-year-old female who presented with abdominal pain and was admitted for acute cholecystitis. #Acute cholecystitis ? Evidenced on CT abdomen and RUQ ultrasound. WBC remained normal, no signs of sepsis. Lipase normal. ? Patient's symptoms resolved with antibiotics, antiemetics and pain control. ? General Surgery consulted, agreed patient can follow-up tomorrow morning around 9 AM for outpatient cholecystectomy. Patient agreeable with this plan. ? Tolerating p.o. intake, ambulating without issues. ? Discharged with levofloxacin, metronidazole, [place], Zofran. Advised to stay n.p.o. after midnight for outpatient cholecystectomy. #Hypertension ? Hold home lisinopril, hydrochlorothiazide as pressures are soft at this time. Advised to follow-up with PCP for further management. #Anxiety/depression ? Continue home sertraline 100 mg, bupropion 150 mg. #GERD ? Continue home Protonix. Total time spent on discharge: 31 minutes on chart review, counseling, documentation, and direct care with patient. Exam Data for Last 24 hours Vital signs and Labs for Last 24 Hours: Temp Pulse Resp BP Pulse Ox O2 Del Method 97.8 F 70 16 108/60 L 95 Room Air 12/09/24 07:53 12/09/24 07:53 12/09/24 07:53 12/09/24 07:53 12/09/24 07:53 12/09/24 07:53 Laboratory Results - last 24 hr 12/09/24 00:34: WBC 8.6, RBC 4.64, Hgb 12.9, Hct 38.7, MCV 83.4, MCH 27.8, MCHC 33.3, RDW 14.3, Plt Count 326, MPV 9.3, Neut % (Auto) 76.6, Lymph % (Auto) 15.0, [place] % (Auto) 7.5, Eos % (Auto) 0.5, Baso % (Auto) 0.2, Neut # (Auto) 6.6, Lymph # (Auto) 1.3, [place] # (Auto) 0.7, Eos # (Auto) 0.0, Baso # (Auto) 0.0, Sodium 137, Potassium 3.1 L, Chloride 102, Carbon Dioxide 19 L, Anion Gap 19.1 H, BUN 25 H, Creatinine 1.30 H, Estimated Creat Clear 49, Estimated GFR 42 L, Est GFR ( Amer) 51 L, Glucose 103 H, Calcium 10.1, Magnesium 1.6, Total Bilirubin 0.6, AST 24, ALT 16, Alkaline Phosphatase 96, Troponin I < 0.01, Total Protein 8.4 H, Albumin 4.7, Globulin 3.7 H, Albumin/Globulin Ratio 1.3, Lipase 252, HCV Ab NEO w/Rflx PCR Qn Negative, HIV Ag/Ab Combo Qual Negative 12/09/24 03:57: Troponin I < 0.01 12/09/24 06:21: WBC 6.8, RBC 3.88 L, Hgb 10.6 L D, Hct 33.1 L, MCV 85.3, MCH 27.6, MCHC 32.3, RDW 14.4, Plt Count 226 D, MPV 9.5, Neut % (Auto) 70.0, Lymph % (Auto) 20.0, [place] % (Auto) 9.2, Eos % (Auto) 0.4, Baso % (Auto) 0.3, Neut # (Auto) 4.7, Lymph # (Auto) 1.4, [place] # (Auto) 0.6, Eos # (Auto) 0.0, Baso # (Auto) 0.0, Sodium 138, Potassium 3.7, Chloride 108 H, Carbon Dioxide 22, Anion Gap 11.7, BUN 25 H, Creatinine 1.20 H, Estimated Creat Clear 54, Estimated GFR 46 L, Est GFR ( Amer) 55 L, Glucose 92, Calcium 8.9 I & O for Last 24 hours: Intake & Output 12/06/24 12/07/24 12/08/24 12/09/24 23:59 23:59 23:59 23:59 Intake Total 3138.333 / 3138.333 Output Total 0 / 0 Balance 3138.333 / 3138.333 Weight 68.583 kg Constitutional Constitutional: no acute distress *Routine HEENT Exam Head: Present normocephalic Eye: Present EOMI and PERRL ENT: Present mucous membranes moist *Routine Neck Exam Neck: Present supple; Absent lymphadenopathy *Routine Respiratory Exam Respiratory: Present CTA bilaterally *Routine Cardiovascular Exam Cardiovascular: Present RRR *Routine Abdominal Exam Abdominal: Present soft, normoactive bowel sounds and tenderness Comments: Very mild epigastric tenderness. *Routine Extremities Exam Extremities: Absent cyanosis, clubbing or edema *Routine Skin Exam Skin: Present warm; Absent rash *Routine Neurological Exam Neurological: Present alert and oriented X3 Results Data Completed and Pending Labs on day of discharge: Labs from last 24 hours 12/09/24 12/09/24 12/09/24 06:21 03:57 00:34 WBC 6.8 8.6 RBC 3.88 L 4.64 Hgb 10.6 L D 12.9 Hct 33.1 L 38.7 MCV 85.3 83.4 MCH 27.6 27.8 MCHC 32.3 33.3 RDW 14.4 14.3 Plt Count 226 D 326 MPV 9.5 9.3 Neut % (Auto) 70.0 76.6 Lymph % (Auto) 20.0 15.0 [place] % (Auto) 9.2 7.5 Eos % (Auto) 0.4 0.5 Baso % (Auto) 0.3 0.2 Neut # (Auto) 4.7 6.6 Lymph # (Auto) 1.4 1.3 [place] # (Auto) 0.6 0.7 Eos # (Auto) 0.0 0.0 Baso # (Auto) 0.0 0.0 Sodium 138 137 Potassium 3.7 3.1 L Chloride 108 H 102 Carbon Dioxide 22 19 L Anion Gap 11.7 19.1 H BUN 25 H 25 H Creatinine 1.20 H 1.30 H Estimated Creat Clear 54 49 Estimated GFR 46 L 42 L Est GFR ( Amer) 55 L 51 L Glucose 92 103 H Calcium 8.9 10.1 Magnesium 1.6 Total Bilirubin 0.6 AST 24 ALT 16 Alkaline Phosphatase 96 Troponin I < 0.01 < 0.01 Total Protein 8.4 H Albumin 4.7 Globulin 3.7 H Albumin/Globulin Ratio 1.3 Lipase 252 HCV Ab NEO w/Rflx PCR Qn Negative HIV Ag/Ab Combo Qual Negative DS: Diagnosis Discharge Diagnosis (1) Acute calculous cholecystitis: Status: Acute Code(s): K80.00 - Calculus of gallbladder with acute cholecystitis without obstruction Meds Home Medications and Allergies Home Medications ?Medication ?Instructions ?Recorded ?Confirmed ?Type sertraline 100 mg tablet (Zoloft) 100 mg PO DAILY #90 tabs 02/24/24 12/09/24 Rx pantoprazole 40 mg tablet,delayed 40 mg PO BID #180 tabs 11/26/24 12/09/24 Rx release (Protonix) albuterol sulfate 90 mcg/actuation 2 puff inhalation Q4HP PRN 12/09/24 12/09/24 History aerosol inhaler shortness of breath or wheezing bupropion HCl 150 mg tablet,12 hr 150 mg PO DAILY 12/09/24 12/09/24 History sustained-release hydrocodone 5 mg-acetaminophen 325 1 tab PO Q6H PRN pain 1 day #4 tabs 12/09/24 Rx mg tablet levofloxacin 750 mg tablet 750 mg PO DAILY 4 days #4 tabs 12/09/24 Rx lisinopril 20 1 tab PO DAILY 12/09/24 12/09/24 History mg-hydrochlorothiazide 12.5 mg tablet Held on 12/09/24. Instructions: Resume on 12/16/24. Hold this medication until follow-up with PCP as your blood pressures have been normal without it. lorazepam 2 mg tablet 2 mg PO HSP PRN sleep 12/09/24 12/09/24 History metronidazole 500 mg tablet 500 mg PO BID 4 days #8 tabs 12/09/24 Rx ondansetron HCl 4 mg tablet 4 mg PO Q8H PRN nausea and 12/09/24 Rx vomiting #7 tabs semaglutide (weight loss) 2.4 2.4 mg SQ WEEKLY 12/09/24 12/09/24 History mg/0.75 mL subcutaneous pen injector (Wegovy) New Prescriptions to Start Prescriptions: hydrocodone-acetaminophen Kristina,Ricardo levofloxacin Kristina,Ricardo metronidazole Kristina,Ricardo ondansetron HCl Kristina,Ricardo Allergies Allergy/AdvReac Type Severity Reaction Status Date / Time codeine Allergy Severe Hives Verified 12/09/24 00:42 Penicillins Allergy Unknown Other Verified 12/09/24 00:42 Discharge Plan Disposition Patient Disposition: Home, Self-Care Condition: Fair Follow up Plan Prescriptions/Medication Reconciliation: New levofloxacin 750 mg tablet 750 mg PO DAILY 4 Days Qty: 4 0RF metronidazole 500 mg tablet 500 mg PO BID 4 Days Qty: 8 0RF hydrocodone-acetaminophen 5-325 mg tablet 1 tab PO Q6H PRN (Reason: pain) 1 Days Qty: 4 0RF ondansetron HCl 4 mg tablet 4 mg PO Q8H PRN (Reason: nausea and vomiting) Qty: 7 0RF Continued sertraline [Zoloft] 100 mg tablet 100 mg PO DAILY Qty: 90 10RF pantoprazole [Protonix] 40 mg tablet,delayed release (DR/EC) 40 mg PO BID Qty: 180 3RF [place] 2.4 mg/0.75 mL pen injector 2.4 mg SQ WEEKLY bupropion HCl 150 mg tablet sustained-release 12 hr 150 mg PO DAILY Patient Comments: TAKE 1 TABLET BY MOUTH ONCE DAILY lorazepam 2 mg tablet 2 mg PO HSP PRN (Reason: sleep) albuterol sulfate 90 mcg/actuation HFA aerosol inhaler 2 puff inhalation Q4HP PRN (Reason: shortness of breath or wheezing) Held lisinopril-hydrochlorothiazide 20-12.5 mg tablet 1 tab PO DAILY Hold Instructions: Resume on 12/16/24. Hold this medication until follow-up with PCP as your blood pressures have been normal without it. Problem Reconciliation Problems Reviewed?: Yes Patient Discharge Instructions Additional Instructions: DO NOT EAT ANYTHING AFTER MIDNIGHT YOU WILL HAVE SURGERY TOMORROW 12/10/24. report for surgery at 8:45 Patient Instructions: DI for Surgical Site Infection, DI for Cholecystitis, DI for Laparoscopic Cholecystectomy Print Language: Slovenian Providers Primary Care Provider: Provider,Referral Admit Provider: Ricardo Acevedo Attending Provider: Ricardo Acevedo
--- NOTE | 2024-12-11 10:14 | SW/DCPLANNER ---
Spoke with patient on the phone. Patient stated that she is doing good. Patient stated that she woke up this morning and had a little swelling and put a ice pack on it and its doing good. 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 Patient stated that she was not given any upcoming appointments. Patient stated that she has no concerns or questions at this time. Belinda Pang
== END 2024-12-09 13:49 | disposition home or self-care (01) ==
LOC: ER 01:53 → 2ND 01:56
PROVIDERS: Nurse Practitioner Family; Admitting Provider Student in an Organized Health Care Education/Training Program; Emergency Provider Emergency Medicine; Visit Provider Student in an Organized Health Care Education/Training Program
DX: K80.00 Calculus of gallbladder with acute cholecystitis without obstruction (principal); E87.6 Hypokalemia; E87.20 Acidosis, unspecified; I12.9 Hypertensive chronic kidney disease with stage 1 through stage 4 chronic kidney disease, or unspecified chronic kidney disease; N18.9 Chronic kidney disease, unspecified; N17.9 Acute kidney failure, unspecified; F32.A Depression, unspecified; F41.9 Anxiety disorder, unspecified; K21.9 Gastro-esophageal reflux disease without esophagitis; K82.8 Other specified diseases of gallbladder; Z88.0 Allergy status to penicillin; Z88.5 Allergy status to narcotic agent; Z79.899 Other long term (current) drug therapy
CPT/HCPCS: 36415; 74177; 76705; 80048; 80053; 83690; 83735; 84484; 85025; 86803; 87040; 87389; 93005; 96361; 96365; 96366; 96367; 96372; 96375; 99284; G0378; J0696; J1650; J1836; J1885; J2270; J2405; J7030; J7120; Q9967

== ENCOUNTER 2024-12-10 08:11 | Day surgery (SDC) | payer OTHER, SELFPAY ==
[2024-12-10] VITALS (13 sets, daily range): BP systolic 124–152; BP diastolic 65–83; PULSE 60–76; RESP 10–18; TEMP 36.1–43; O2SAT 95–100; BMI 27.6
[2024-12-10] MEDS: 0.9 % SODIUM CHLORIDE 1000ML 1,000 ML 50 ML IV (09:37)
--- NOTE | 2024-12-10 09:45 | EXP.ANES.CKL ---
[facility] Disclaimer: The information contained in this section may have been updated after the patient was seen, as this information can be updated by other users. Medical History Acute dysfunction of eustachian tube Hx of fracture of right hip Anemia Depression Hiatal hernia Anxiety Arthritis of right hip Hypertension Lupus Surgical History History of total left knee replacement Hx of carpal tunnel repair Hx of section Family History Other Heart attack Social History Smoking Status: Never smoker alcohol intake: never substance use type: denies use current occupational status: unemployed and disabled Travel in the last 8 weeks?: None housing: house Have you lived/traveled outside [place] in past 30 days?: No Contact w/someone who lives/traveled outside US past 30 days?: No Exposure to someone with infectious disease in past 14 days?: No Do you have a fever (greater than 100.4 F or 38 C)?: No Have you tested positive for COVID-19?: No Exposed to someone with COVID-19 in past 14 days?: No Do you have a sore throat?: No Do you have a cough?: No Do you have any weakness?: No Do you have any diarrhea?: No Are you experiencing any unusual bleeding?: No Do you have any muscle aches/pain?: No Do you have any abdominal pain?: No Are you experiencing loss of taste or smell?: No [facility] Anesthesia Checklist Patient Identification Patient Identification: Arm Band Structural Data Admitted From: Home Planned Operative Procedure/s: Laparoscopic Cholecystectomy Consent for Planned Operative Procedure(s) Verified: Yes Verified Documents: Surgical Consent and History and Physical NPO Status Verified Time NPO: 00:00 Additional verifications Anesthesia Reactions: No Hx Blood Transfusions: No Blood Transfusion Reaction: No Airway Assessment Mallampati Score:: Class II C-Spine Mobility Assessed: Yes TMJ Mobility Assessed: Yes Dentition: Edentulous Neurological Assessment Level of Consciousness: Awake, Alert and Appropriate Anesthesia Plan Anesthesia Risk discussed: Yes Anesthesia Plan: Verified ASA Class: II Anesthesia Type: General
--- NOTE | 2024-12-10 10:01 | EXP.OP.NOTE ---
Date of procedure: 12/10/24 Pre-op Diagnosis:: Acute calculous cholecystitis Post-op Diagnosis:: Same Procedure performed:: Laparoscopic cholecystectomy Surgeon:: Kenton Yap MD [employer]:: Minh Hernandez Anesthesia: GETMagdaleno Estimated blood loss (mL): 15 Operative findings:: Fairly severe gallbladder distention Significant gallbladder wall thickening Moderate to severe serosal weeping Severe pericholecystic fat stranding Significant infundibular thickening Operative note:: After informed consent was obtained, the patient was taken to the operating room and placed in the supine position. General anesthesia was induced and the abdomen was prepped and draped in a sterile fashion. After infiltration with local anesthetic an infraumbilical incision was made. A Veress needle was placed in position. The abdomen was insufflated. A 5 mm optical trocar was placed in position. Under direct visualization, a 12 mm trocar was placed in the subxiphoid position and 2 additional 5 mm trocars were placed in the right upper quadrant. The gallbladder was elevated up and over the liver margin. The tissue around the cystic duct was carefully dissected. 3 clips were placed proximally and the duct was transected with harmonic patric. The cystic artery was controlled/clipped in a similar manner. Harmonic patric were then utilized to dissect the gallbladder away from the liver margin. The gallbladder was placed in a retrieval bag and removed through the subxiphoid trocar site. The right upper quadrant was thoroughly irrigated. No active bleeding or bile leak was noted. Fascia at the subxiphoid trocar site was reapproximated utilizing 0 Ethibond. The remaining trocars were removed. All wounds were irrigated and skin was closed with 4-0 Monocryl in a subcuticular fashion. Steri-Strips were applied. The patient's anesthetic agents were reversed and extubation was completed prior to transfer to recovery in stable condition. Condition: stable Disposition: PACU Specimens:: Gallbladder Complications:: No immediate
[2024-12-10] MEDS: 0.9 % SODIUM CHLORIDE 1000ML 1,000 ML 25 ML IV (10:17)
[2024-12-10] MEDS: LIDOCAINE 1% 20ML MDV 20 ML (10:24)
[2024-12-10] MEDS: SODIUM CHLORIDE IRRIG SOLUTION 3,000 ML 200 ML IR (10:25)
[2024-12-10] MEDS: CLINDAMYCIN PHOSPHATE/D5W 900 MG/50 ML PIGGYBACK 50 MG (10:25)
--- NOTE | 2024-12-10 11:20 | P.PNANES_ITS ---
[facility] Anesthesia Record Part I Anesthesia Record I Intake, IV Amount: 900 Hydration: Adequate Estimated blood loss (mL): 15 Urine output (mL): 0 Blood Products used (#): none Blood Pressure: 150/83 SaO2: 99 Pulse Rate: 75 Airway Patency: Patent Respiratory Rate: 10 Temperature: 97.4 F Patient is:: Drowsy and Stable Stable to PACU at:: 11:15
[2024-12-10] MEDS: MORPHINE 2MG/ML SYRINGE 1 MG IV ×2 (11:41→11:54)
[2024-12-10] MEDS: ONDANSETRON 4MG/2ML VIAL 4 MG (11:55)
--- NOTE | 2024-12-10 13:09 | P.PNANES_ITS ---
[facility] Anesthesia Record Part II Anesthesia Record Part II Discharge Time: 12:05 Destination: Surgical Day Care (OP Surgery) PACU nurse assessment reviewed?: Yes Patient Condition:: Good Anesthesia Complications:: None Swallowing reflex intact?: Yes Airway Patency: Patent Cyanosis?: No Blood Pressure: 145/70 SaO2: 100 Respiratory Rate: 17 Pulse Rate: 64 Temperature: 97.4 F Mental Status: Alert & Oriented Pain level:: 6 Nausea and/or vomitting:: None Intake, IV Amount: 0 Hydration: Adequate
== END 2024-12-10 13:06 | disposition home or self-care (01) ==
PROVIDERS: PCP Family Medicine; Visit Provider Surgery
PROC: 0FT44ZZ Resection of Gallbladder, Percutaneous Endoscopic Approach (ICD-10-PCS; CPT 47562; principal; 2024-12-10 10:15)
DX: K80.12 Calculus of gallbladder with acute and chronic cholecystitis without obstruction (principal); F41.9 Anxiety disorder, unspecified; F32.A Depression, unspecified; I10 Essential (primary) hypertension; M32.9 Systemic lupus erythematosus, unspecified; Z88.1 Allergy status to other antibiotic agents; Z88.5 Allergy status to narcotic agent; Z79.85 Long-term (current) use of injectable non-insulin antidiabetic drugs; Z79.899 Other long term (current) drug therapy
CPT/HCPCS: 47562; J0736; J1100; J2003; J2250; J2270; J2405; J2704; J3010; J7030